=== PATIENT | female | born 1970 | race Caucasian/White ===

== ENCOUNTER 2017-11-23 13:38 | Emergency (ER) | payer SELFPAY ==
[2017-11-23 14:00] VITALS: RESP 18
[2017-11-23] MEDS ORDERED: MORPHINE SULFATE 4 MG/ML SYRINGE IVP STA (14:32)
[2017-11-23] MEDS ORDERED: LIDOCAINE VISCOUS 2% 15 ML CUP MUCOUS MEM ONE (14:34)
[2017-11-23 15:03] LABS: Partial Thromboplastin Time 23.1 sec (22.0-30.0)
[2017-11-23 15:04] LABS: ALT 24 U/L (9-52); AST 26 U/L (14-36); Albumin 4.7 g/dL (3.5-5.0); Alkaline Phosphatase 47 U/L (38-126); Anion Gap 9 mmol/L; Blood Urea Nitrogen 16 mg/dL (7-17); Calcium 9.9 mg/dL (8.4-10.2); Carbon Dioxide 26 mmol/L (22-30); Chloride 106 mmol/L (98-107); Glucose 98 mg/dL (74-99); Potassium 4.2 mmol/L (3.5-5.1); Sodium 141 mmol/L (137-145); Total Bilirubin 0.4 mg/dL (0.2-1.3); Total Protein 7.6 g/dL (6.3-8.2)
[2017-11-23 15:16] LABS: Basophils % (A) 1 %; Eosinophils # (A) 0.3 k/uL (0-0.7); Eosinophils % (A) 4 %; HCT 44.2 % (34.0-46.0); HGB 13.9 gm/dL (11.4-16.0); Lymphocytes # (A) 2.1 k/uL (1.0-4.8); Lymphocytes % (A) 34 %; MCH 30.9 pg (25.0-35.0); MCHC 31.6 g/dL (31.0-37.0); MCV 97.8 fL (80.0-100.0); Mean Platelet Volume 7.5; Monocytes # (A) 0.3 k/uL (0-1.0); Monocytes % (A) 6 %; Neutrophils # (A) 3.2 k/uL (1.3-7.7); Neutrophils % (A) 53 %; Platelet Count 225 k/uL (150-450); RBC 4.52 m/uL (3.80-5.40); RDW 13.1 % (11.5-15.5)
--- NOTE | 2017-11-23 15:38 | ED ---
GI Bleed HPI - General Chief complaint: GI Bleed Stated complaint: Rectal pain Time Seen by Provider: 11/23/17 14:08 Source: patient, RN notes reviewed, old records reviewed Mode of arrival: ambulatory Limitations: no limitations - History of Present Illness Initial comments: Patient is a 47-year-old female presents for instructed to plan of rectal pain. Patient reports that she was straining to have a bowel movement suddenly felt a large bulge from her rectum. Patient reports she's noticed some blood. Patient states she's had this happen before. She denies any history of anal intercourse, over her history of severe constipation. She denies any abdominal pain. Patient states that she's had no children. Patient denies any recent fever, chills, shortness of breath, chest pain, back pain, abdominal pain, nausea vomiting, numbness or tingling, dysuria or hematuria, constipation or diarrhea, headaches or visual changes, or any other current symptoms - Related Data Previous Rx's Medication Instructions Recorded Bisacodyl [Dulcolax] 10 mg PO ONCE #20 tablet. 11/23/17 Allergies Allergy/AdvReac Type Severity Reaction Status Date / Time No Known Allergies Allergy Verified 11/23/17 13:57 Review of Systems ROS Statement: Those systems with pertinent positive or pertinent negative responses have been documented in the HPI. ROS Other: All systems not noted in ROS Statement are negative. Past Medical History Past Medical History: No Reported History History of Any Multi-Drug Resistant Organisms: None Reported Past Surgical History: No Surgical Hx Reported Past Psychological History: No Psychological Hx Reported Smoking Status: Unknown if ever smoked Past Alcohol Use History: None Reported Past Drug Use History: Marijuana General Exam - General Exam Comments Initial Comments: 47-year-old female. Alert and oriented. No significant distress. Limitations: no limitations General appearance: alert, in no apparent distress Head exam: Present: atraumatic, normocephalic, normal inspection Eye exam: Present: normal appearance, PERRL, EOMI. Absent: scleral icterus, conjunctival injection, periorbital swelling ENT exam: Present: normal exam, mucous membranes moist Neck exam: Present: normal inspection. Absent: tenderness, meningismus, lymphadenopathy Respiratory exam: Present: normal lung sounds bilaterally. Absent: respiratory distress, wheezes, rales, rhonchi, stridor Cardiovascular Exam: Present: regular rate, normal rhythm, normal heart sounds. Absent: systolic murmur, diastolic murmur, rubs, gallop, clicks GI/Abdominal exam: Present: soft, normal bowel sounds. Absent: distended, tenderness, guarding, rebound, rigid Rectal exam: Present: mass (Patient has a cobblestone-like appearance mass over the rectum. Concern for rectal prolapse.). Absent: normal inspection, normal rectal tone Extremities exam: Present: normal inspection, full ROM, normal capillary refill. Absent: tenderness, pedal edema, joint swelling, calf tenderness Back exam: Present: normal inspection Neurological exam: Present: alert, oriented X3, CN II-XII intact Psychiatric exam: Present: normal affect, normal mood Course Vital Signs 11/23/17 11/23/17 13:57 15:47 Temperature 98.0 F 98 F Pulse Rate 75 68 Respiratory 18 18 Rate Blood Pressure 116/57 118/70 O2 Sat by Pulse 99 100 Oximetry Medical Decision Making - Medical Decision Making 47-year-old female presents emergency Department a concern for rectal mass. On exam she has a cobblestone-like appearance rectal prolapse. rectal prolapse was approximately 1-1/2 inches in length. Lab work was obtained Patient was given pain medication to help relax her. We did place topical viscous lidocaine. After I applied some firm slow steady pressure was able to return the rectal prolapse to normal position. She has normal rectal tone afterwards. She did have some bleeding at time of exam. Discussed that she could expect some minor bleeding for the next few days. I will put the Patient on stool softeners. I discussed that she should follow-up with a general surgeon for a colonoscopy and further evaluation. Patient understands treatment plan will comply. Return parameters were discussed. - Lab Data Result diagrams: 11/23/17 14:40 11/23/17 14:40 Lab Results 11/23/17 11/23/17 11/23/17 Range/Units 14:40 14:40 14:40 WBC 6.0 (3.8-10.6) k/uL RBC 4.52 (3.80-5.40) m/uL Hgb 13.9 (11.4-16.0) gm/dL Hct 44.2 (34.0-46.0) % MCV 97.8 (80.0-100.0) fL MCH 30.9 (25.0-35.0) pg MCHC 31.6 (31.0-37.0) g/dL RDW 13.1 (11.5-15.5) % Plt Count 225 (150-450) k/uL Neutrophils % 53 % Lymphocytes % 34 % Monocytes % 6 % Eosinophils % 4 % Basophils % 1 % Neutrophils # 3.2 (1.3-7.7) k/uL Lymphocytes # 2.1 (1.0-4.8) k/uL Monocytes # 0.3 (0-1.0) k/uL Eosinophils # 0.3 (0-0.7) k/uL Basophils # 0.0 (0-0.2) k/uL PT 10.0 (9.0-12.0) sec INR 1.0 (<1.2) APTT 23.1 (22.0-30.0) sec Sodium 141 (137-145) mmol/L Potassium 4.2 (3.5-5.1) mmol/L Chloride 106 (98-107) mmol/L Carbon Dioxide 26 (22-30) mmol/L Anion Gap 9 mmol/L BUN 16 (7-17) mg/dL Creatinine 0.86 (0.52-1.04) mg/dL Est GFR (CKD-EPI)AfAm >90 (>60 ml/min/1.73 sqM) Est GFR (CKD-EPI)NonAf 83 (>60 ml/min/1.73 sqM) Glucose 98 (74-99) mg/dL Calcium 9.9 (8.4-10.2) mg/dL Total Bilirubin 0.4 (0.2-1.3) mg/dL AST 26 (14-36) U/L ALT 24 (9-52) U/L Alkaline Phosphatase 47 (38-126) U/L Total Protein 7.6 (6.3-8.2) g/dL Albumin 4.7 (3.5-5.0) g/dL Disposition Clinical Impression: Rectal prolapse Disposition: HOME SELF-CARE Condition: Good Instructions: Rectal Prolapse (ED) Additional Instructions: Patient has a follow-up with GI surgeon. Return to the emergency department if any alarming signs or symptoms occur. Make sure drinking plain fluids. Patient should likely schedule colonoscopy. Take stool softeners daily. Prescriptions: Bisacodyl [Dulcolax] 10 mg PO ONCE #20 tablet.dr Is patient prescribed a controlled substance at d/c from ED?: No Referrals: None,Stated [Primary Care Provider] - 1-2 days Shaniqua Beach DO [Doctor of Osteopathic Medicine] - 1-2 days Time of Disposition: 15:38
[2017-11-23 15:48] VITALS: BP 118/70; PULSE 68; TEMP 98
== END 2017-11-23 15:47 | disposition home or self-care (01) ==
LOC: EC 13:38
DX: K62.3 Rectal prolapse (principal)
CPT/HCPCS: 36415; 80053; 85025; 85610; 85730; 99285; 96374; J2270

== ENCOUNTER 2017-11-25 03:07 | Observation (INO) | payer OTHER ==
[2017-11-25] MEDS ORDERED: NALOXONE 0.4 MG/ML 1 ML VIAL IV PRN (03:20)
[2017-11-25] MEDS: SODIUM CHLORIDE 0.9% 1,000 ML IV SCH ×2 (03:21→12:58)
[2017-11-25 03:28] LABS: Basophils % (A) 0 %; Eosinophils # (A) 0.1 k/uL (0-0.7); Eosinophils % (A) 1 %; HCT 38.9 % (34.0-46.0); Lymphocytes % (A) 9 %; MCH 32.6 pg (25.0-35.0); MCHC 33.5 g/dL (31.0-37.0); MCV 97.3 fL (80.0-100.0); Mean Platelet Volume 7.2; Monocytes # (A) 0.4 k/uL (0-1.0); Monocytes % (A) 3 %; Neutrophils # (A) 10.1 k/uL (1.3-7.7); Neutrophils % (A) 86 %; Platelet Count 185 k/uL (150-450); RBC 3.99 m/uL (3.80-5.40); RDW 12.9 % (11.5-15.5); WBC 11.8 k/uL (3.8-10.6)
--- NOTE | 2017-11-25 03:29 | ED ---
General Adult HPI - General Chief complaint: Abdominal Pain Stated complaint: kidney stone Time Seen by Provider: 11/25/17 03:11 Source: patient, family, EMS Mode of arrival: EMS Limitations: no limitations - History of Present Illness Initial comments: Adam is a previously healthy 47-year-old female who presents to our ED via EMS as a transfer from outside facility. The patient presented to the outside facility for acute onset of right sided abdominal pain. Patient was in severe stabbing 10 out of 10 pain. Labs and imaging were ordered at outside facility and revealed a very large right-sided ureteral stone measuring 23 x 12 x 9 mm. Patient had severe hydronephrosis with a little functional renal parenchyma noted. Patient had evidence of a urinary tract infection and was given IV Rocephin. Pain which managed with IV Dilaudid and the patient was transferred here for evaluation by urology. Despite receiving 1.5 mg of Dilaudid in the past 3 hours the patient reports persistent flank and right-sided abdominal pain. She denies any recent fevers, chills, or vomiting. She does report nausea associated with the pain, as well as dry heaves but no vomiting. Note the patient was evaluated in our hospital on November 23 for rectal prolapse, her rectum was manually reduced. She's not having any further rectal pain or prolapse. - Related Data Previous Rx's Medication Instructions Recorded Bisacodyl [Dulcolax] 10 mg PO ONCE #20 tablet. 11/23/17 Allergies Allergy/AdvReac Type Severity Reaction Status Date / Time No Known Allergies Allergy Verified 11/25/17 03:15 Review of Systems ROS Statement: Those systems with pertinent positive or pertinent negative responses have been documented in the HPI. ROS Other: All systems not noted in ROS Statement are negative. Past Medical History Past Medical History: No Reported History Additional Past Medical History / Comment(s): kidney stone, rectal prolapse History of Any Multi-Drug Resistant Organisms: None Reported Past Surgical History: No Surgical Hx Reported Past Psychological History: No Psychological Hx Reported Smoking Status: Never smoker Past Alcohol Use History: None Reported Past Drug Use History: Marijuana General Exam - General Exam Comments Initial Comments: GENERAL: Patient is well-developed and well-nourished. Patient is nontoxic and well- hydrated and is in moderate distress. Patient appears uncomfortable HENT: Normocephalic, Atraumatic. Neck is soft and supple. No significant lymphadenopathy is noted. Oropharynx is clear. Moist mucous membranes. Neck has full range of motion without eliciting any pain. EYES: The sclera were anicteric and conjunctiva were pink and moist. Extraocular movements were intact and pupils were equal round and reactive to light. Eyelids were unremarkable. PULMONARY: Unlabored respirations. Good breath sounds bilaterally. No audible rales rhonchi or wheezing was noted. CARDIOVASCULAR: There is a regular rate and rhythm without any murmurs gallops or rubs. ABDOMEN: Soft and nontender with normal bowel sounds. Right-sided abdominal and flank pain SKIN: Skin is clear with no lesions or rashes and otherwise unremarkable. NEUROLOGIC: Patient is alert and oriented x3. Cranial nerves II through XII are grossly intact. Motor and sensory are also intact. Normal speech, volume and content. Symmetrical smile. Antalgic gait MUSCULOSKELETAL: Normal extremities with adequate strength and full range of motion. No lower extremity swelling or edema. No calf tenderness. LYMPHATICS: No significant lymphadenopathy is noted PSYCHIATRIC: Normal psychiatric evaluation. Limitations: no limitations Limitations: no limitations Course Vital Signs 11/25/17 03:08 Temperature 98.5 F Pulse Rate 69 Respiratory 16 Rate Blood Pressure 138/79 O2 Sat by Pulse 100 Oximetry Medical Decision Making - Medical Decision Making Patient care was discussed with Dr. Sibley at [facility] who is transferring the patient to us for evaluation by urology Patient and was seen and evaluated immediately upon arrival to the emergency department,. He is a healthy 47-year-old female in moderate pain despite having repeat doses of Dilaudid Patient care was discussed with urology education program specialist Dr. Iglesias. He states that stones of this size typically arch acute require outpatient management, however patient does need to be seen this week urgent management. He states that the patient's pain can be controlled in the emergency department she can be discharged home. Otherwise place her in observation. Sitting the patient has had 1.5 mg of Dilaudid and has persistent pain, an antalgic gait, as well as evidence of urinary tract infection in the setting of a kidney stone I do feel that she requires observation. In addition the patient does live in [place] and would have to commute to this area to be reevaluated by urology. I will place the patient in observation for pain management, IV fluids and evaluation by urology. Disposition Clinical Impression: Kidney stone on right side, Hydronephrosis due to obstruction of ureter, Urinary tract infection Disposition: ADMITTED IP TO THIS HOSP Condition: Stable Referrals: Ann Mayers DO [Primary Care Provider] - 1-2 days
[2017-11-25 03:38] LABS: Appearance,Urine Clear (Clear); Bilirubin,Urine Negative (Negative); Blood,Urine Small (Negative); Color,Urine Light Yellow; Glucose,Urine (UA) Negative (Negative); Ketones,Urine Negative (Negative); Leukocyte Esterase,Urine Moderate (Negative); Nitrite,Urine Negative (Negative); PH, Urine 5.5 (5.0-8.0); Protein,Urine Trace (Negative); RBC,Urine 1 /hpf (0-5); Squamous Epithelial Cell,Urine 2 /hpf (0-4); Urobilinogen,Urine <2.0 mg/dL (<2.0); WBC,Urine 15 /hpf (0-5)
[2017-11-25 03:39] LABS: Prothrombin Time 9.9 sec (9.0-12.0)
[2017-11-25 03:40] LABS: ALT 34 U/L (9-52); AST 28 U/L (14-36); Albumin 3.9 g/dL (3.5-5.0); Alkaline Phosphatase 52 U/L (38-126); Anion Gap 10 mmol/L; Blood Urea Nitrogen 18 mg/dL (7-17); Calcium 8.9 mg/dL (8.4-10.2); Carbon Dioxide 20 mmol/L (22-30); Chloride 110 mmol/L (98-107); Glucose 146 mg/dL (74-99); Potassium 4.4 mmol/L (3.5-5.1); Sodium 140 mmol/L (137-145); Total Bilirubin 0.3 mg/dL (0.2-1.3); Total Protein 6.7 g/dL (6.3-8.2)
[2017-11-25] MEDS: HYDROmorphone 1 MG/ML 1 ML SYRINGE IVP PRN ×2 (03:48→06:09)
[2017-11-25] MEDS ORDERED: ONDANSETRON 4 MG/2 ML VIAL IVP STA (04:19)
[2017-11-25] MEDS ORDERED: KETOROLAC 30 MG/ML 1 ML VIAL IVP STA (04:19)
[2017-11-25 04:22] LABS: Specific Gravity,Urine >1.050 (1.001-1.035)
[2017-11-25] MEDS ORDERED: ONDANSETRON 4 MG/2 ML VIAL IVP PRN (04:31)
[2017-11-25 04:52] VITALS: BMI 21.6
[2017-11-25 05:05] VITALS: RESP 18
[2017-11-25 08:07] VITALS: BP 104/65; PULSE 88; TEMP 98.7
--- NOTE | 2017-11-25 14:00 | P.GSHP ---
History of Present Illness H&P Date: 11/25/17 Chief Complaint: Right flank pain The patient is a 47-year-old white female with an unremarkable urologic history. Specifically, she denies any prior history of UTIs or urolithiasis. Yesterday evening, she experienced right flank pain radiating to the right lower quadrant. She was evaluated at [facility]. A computed tomography scan showed marked right hydroureteronephrosis, with thinning of the right renal parenchyma, due to a 22 mm right distal ureteral calculus. She was transferred to [facility] and admitted. - Constitutional Constitutional: Reports chills, Denies fever - Gastrointestinal Gastrointestinal: Reports nausea, Reports vomiting - Genitourinary (Female) Genitourinary: Reports flank pain, Denies dysuria, Denies hematuria Past Medical History Past Medical History: No Reported History Additional Past Medical History / Comment(s): kidney stone, rectal prolapse History of Any Multi-Drug Resistant Organisms: None Reported Past Surgical History: No Surgical Hx Reported Smoking Status: Never smoker - Past Family History Mother Family Medical History: Asthma Additional Family Medical History / Comment(s): kidney stones Father Family Medical History: No Reported History Medications and Allergies Home Medications Medication Instructions Recorded Confirmed Type Hydrocodone/Acetaminophen [[place] 1 - 2 each PO Q4HR PRN #20 tab 11/25/17 Rx 5-325] Allergies Allergy/AdvReac Type Severity Reaction Status Date / Time No Known Allergies Allergy Verified 11/25/17 08:22 Surgical - Exam Vital Signs Temp Pulse Resp BP Pulse Ox 98.5 F 69 16 138/79 100 11/25/17 03:08 11/25/17 03:08 11/25/17 03:08 11/25/17 03:08 11/25/17 03:08 - General well developed, well nourished, no distress - Neck no masses, trachea midline - Respiratory normal respiratory effort - Abdomen Abdomen: soft, non tender, no guarding, no rigid, no rebound - Psychiatric oriented to time, oriented to person, oriented to place, speech is normal, memory intact Results - Labs 11/25/17 03:18 11/25/17 03:18 Abnormal Lab Results - Last 24 Hours (Table) 11/25/17 11/25/17 11/25/17 Range/Units 03:16 03:18 03:18 WBC 11.8 H (3.8-10.6) k/uL Neutrophils # 10.1 H (1.3-7.7) k/uL Chloride 110 H (98-107) mmol/L Carbon Dioxide 20 L (22-30) mmol/L BUN 18 H (7-17) mg/dL Glucose 146 H (74-99) mg/dL Ur Specific [place] >1.050 H (1.001-1.035) Urine Protein Trace H (Negative) Urine Blood Small H (Negative) Ur Leukocyte Esterase Moderate H (Negative) Urine WBC 15 H (0-5) /hpf Diabetes panel 11/25/17 Range/Units 03:18 Sodium 140 (137-145) mmol/L Potassium 4.4 (3.5-5.1) mmol/L Chloride 110 H (98-107) mmol/L Carbon Dioxide 20 L (22-30) mmol/L BUN 18 H (7-17) mg/dL Creatinine 0.81 (0.52-1.04) mg/dL Glucose 146 H (74-99) mg/dL Calcium 8.9 (8.4-10.2) mg/dL AST 28 (14-36) U/L ALT 34 (9-52) U/L Alkaline Phosphatase 52 (38-126) U/L Total Protein 6.7 (6.3-8.2) g/dL Albumin 3.9 (3.5-5.0) g/dL Calcium panel 11/25/17 Range/Units 03:18 Calcium 8.9 (8.4-10.2) mg/dL Albumin 3.9 (3.5-5.0) g/dL Pituitary panel 11/25/17 Range/Units 03:18 Sodium 140 (137-145) mmol/L Potassium 4.4 (3.5-5.1) mmol/L Chloride 110 H (98-107) mmol/L Carbon Dioxide 20 L (22-30) mmol/L BUN 18 H (7-17) mg/dL Creatinine 0.81 (0.52-1.04) mg/dL Glucose 146 H (74-99) mg/dL Calcium 8.9 (8.4-10.2) mg/dL Adrenal panel 11/25/17 Range/Units 03:18 Sodium 140 (137-145) mmol/L Potassium 4.4 (3.5-5.1) mmol/L Chloride 110 H (98-107) mmol/L Carbon Dioxide 20 L (22-30) mmol/L BUN 18 H (7-17) mg/dL Creatinine 0.81 (0.52-1.04) mg/dL Glucose 146 H (74-99) mg/dL Calcium 8.9 (8.4-10.2) mg/dL Total Bilirubin 0.3 (0.2-1.3) mg/dL AST 28 (14-36) U/L ALT 34 (9-52) U/L Alkaline Phosphatase 52 (38-126) U/L Total Protein 6.7 (6.3-8.2) g/dL Albumin 3.9 (3.5-5.0) g/dL - Imaging CT scan - abdomen: report reviewed, image reviewed Assessment and Plan (1) Hydronephrosis with urinary obstruction due to ureteral calculus Current Visit: Yes Status: Acute Code(s): N13.2 - HYDRONEPHROSIS WITH RENAL AND URETERAL CALCULOUS OBSTRUCTION SNOMED Code(s): 344459234 Plan: I had a lengthy discussion with the patient regarding the computed tomography scan findings. The degree of hydronephrosis, with thinned parenchyma, indicates that the ureteral obstruction has been long-standing. I explained to her that she has likely lost some permanent right renal function, but that removal of the calculus may preserve her remaining right renal function. We discussed alternative treatment options, which include ESWL, ureteroscopy with laser lithotripsy, and open ureterolithotomy. The pros and cons of each were reviewed. I have suggested that she undergo ureteroscopy with laser lithotripsy , but I explained to her that this would likely require multiple procedures. I explained that the open ureterolithotomy offers the advantage of it being a single procedure, but postoperatively she will be advised to avoid lifting and strenuous activity for approximately 4-6 weeks. I also discussed the fact that regardless which procedure she elects to proceed with, there is a possibility that she will develop a ureteral stricture due to the fact that the calculus has been impacted there for an extended time period. She has elected to undergo right ureteroscopy with laser lithotripsy, with the understanding that the procedure will likely be staged. However, if there is enough edema surrounding the calculus that this cannot be successfully performed, she prefers to undergo an open ureterolithotomy. She will be discharged home, as she is currently comfortable, and she is given a prescription for [place]. She will be scheduled for surgery, later this week if possible. Time with Patient: Greater than 30
== END 2017-11-25 14:30 | disposition home or self-care (01) ==
LOC: EC 03:07 → 3OBS 03:29
PROVIDERS: ADMIT Urology; ATTEND Urology
DX: N13.2 Hydronephrosis with renal and ureteral calculous obstruction (principal); Z87.19 Personal history of other diseases of the digestive system; Z84.1 Family history of disorders of kidney and ureter; Z82.5 Family history of asthma and other chronic lower respiratory diseases
CPT/HCPCS: 99285 ×2; 96374 ×2; 96375 ×3; 96361 ×3; 96376; 36415; 86900; 86901; 80053; 83605; 85025; 85610; 85730; 86850; 81001; 87040; 87086; G0378; J2405; J1885; J1170

== ENCOUNTER 2017-11-28 16:48 | Inpatient (IN) | payer OTHER ==
--- NOTE | 2017-11-28 15:56 | P.GSHP ---
History of Present Illness H&P Date: 11/28/17 Chief Complaint: Flank Pain The patient is a 47-year-old white female with an unremarkable urologic history. Specifically, she denies any prior history of UTIs or urolithiasis. On the evening of 11/24/17, she experienced right flank pain radiating to the right lower quadrant. She was evaluated at [facility]. A CT scan showed marked right hydroureteronephrosis, with thinning of the right renal parenchyma, due to a 22 mm right distal ureteral calculus. She was transferred to [facility] and admitted. She was offered various management options. She was comfortable and thus declined placement of a ureteral stent or nephrostomy tube. Arrangements were to be made for her to undergo elective removal of the calculus. However, she presents today with intractable symptoms. - Constitutional Constitutional: Denies fever - Gastrointestinal Gastrointestinal: Reports nausea, Reports vomiting - Genitourinary (Female) Genitourinary: Reports flank pain Past Medical History Past Medical History: No Reported History Additional Past Medical History / Comment(s): kidney stone, rectal prolapse History of Any Multi-Drug Resistant Organisms: None Reported Past Surgical History: No Surgical Hx Reported Additional Past Surgical History / Comment(s): teeth removed Past Anesthesia/Blood Transfusion Reactions: No Reported Reaction Smoking Status: Never smoker - Past Family History Mother Family Medical History: Asthma Additional Family Medical History / Comment(s): kidney stones Father Family Medical History: No Reported History Medications and Allergies Home Medications Medication Instructions Recorded Confirmed Type Hydrocodone/Acetaminophen [[place] 1 - 2 each PO Q4HR PRN #20 tab 11/25/17 Rx 5-325] Allergies Allergy/AdvReac Type Severity Reaction Status Date / Time No Known Allergies Allergy Verified 11/28/17 14:18 Surgical - Exam - General well developed, well nourished, moderate distress - Respiratory normal respiratory effort - Abdomen Abdomen: soft, non tender, no guarding, no rigid, no rebound - Psychiatric oriented to time, oriented to person, oriented to place, speech is normal, memory intact Results - Imaging CT scan - abdomen: report reviewed, image reviewed Assessment and Plan (1) Hydronephrosis with urinary obstruction due to ureteral calculus Status: Acute Code(s): N13.2 - HYDRONEPHROSIS WITH RENAL AND URETERAL CALCULOUS OBSTRUCTION SNOMED Code(s): 246006127 Plan: Alternative management options have been discussed in detail with the patient and her . Her stone is very large, and as such I believe she is best suited for an open procedure. However, this would force her to miss 4-6 weeks of work. In view of this, she desires an endoscopic approach if feasible. She is aware that this would likely require multiple procedures. As a result of shared decision-making, it was ultimately decided to proceed with cystoscopy, right ureteroscopy with Holmium laser lithotripsy, and ureteral stent placement. If it becomes evident that this is not feasible, she will undergo an open right ureterolithotomy. I have explained all of this to the patient and her to the best of my ability. I have explained potential risks, which include anesthesia, bleeding, infection, ureteral injury, urinary leak, and postoperative ureteral stricture.
[~2017-11-28 16:48] MED LIST changes: +DANTROLENE 20 MG VIAL IV ONE; +DEXAMETHASONE SOD PHOS (MDV) 100 MG/10 ML VIAL IVP ONE; +FAMOTIDINE 20 MG/2 ML VIAL IVP ONE; -FAMOTIDINE 20 MG/2 ML VIAL ONE; +HYDROmorphone (PF) 1 MG/ML ONE; +LACTATED RINGERS 1,000 ML IV ONE; +LIDOCAINE 1% 20 ML VIAL (10MG/ML) FOR IV START INTRADERMA ONE; +LIDOCAINE 1% INJ 10MG/ML (20 ML MDV) ONE; +MIDAZOLAM 2 MG/2 ML VIAL ONE; +ONDANSETRON 4 MG/2 ML VIAL IVP ONE; +PHENYLEPHRINE-0.9% NACL SYG 1 MG/10 ML SYRINGE ONE; +PROPOFOL 10 MG/ML 20 ML VIAL IV ONE; +SUCCINYLCHOLINE CHLORIDE 100 MG/5 ML SYR IV ONE; +ceFAZolin 1,000 MG in DEXTROSE/WATER 1 50ML.BAG IVPB SCH; +fentaNYL (PF) 50 MCG/ML 2 ML AMP ONE
[2017-11-28] MEDS ORDERED: IOPAMIDOL-370 50ML BTL IRRIGATION ONE ×2 (17:23)
[2017-11-28] MEDS ORDERED: LACTATED RINGERS 1,000 ML IV ONE ×3 (18:21→19:35)
--- NOTE | 2017-11-28 19:44 | P.OP ---
Date of Procedure: 11/28/17 Preoperative Diagnosis: Right Ureteral Calculus Postoperative Diagnosis: Same Procedure(s) Performed: Cystoscopy, Right Ureteroscopy with Holmium Laser Lithotripsy and Stone Basketing, Right Ureteral Stent Insertion Anesthesia: MOISES Surgeon: Anson Iglesias Estimated Blood Loss (ml): 0 IV fluids (ml): 1,100 Pathology: none sent Condition: stable Disposition: PACU Indications for Procedure: The patient is a 47-year-old white female with an unremarkable urologic history. Specifically, she denies any prior history of UTIs or urolithiasis. On the evening of 11/24/17, she experienced right flank pain radiating to the right lower quadrant. She was evaluated at [facility]. A CT scan showed marked right hydroureteronephrosis, with thinning of the right renal parenchyma, due to a 22 mm right distal ureteral calculus. Operative Findings: Large right distal ureteral calculus, fragmented and removed in its entirety. Description of Procedure: The patient was taken to the operating room and placed in the dorsolithotomy position, with legs supported in Luisito stirrups. The external genitalia was prepped and draped sterilely. The 30 lens was used to introduce the 19-Maori Stortz cystoscopic sheath through the urethra and into the bladder under direct vision. The bladder was examined in its entirety. Both ureteral orifices were normal anatomic location and configuration. No tumors or foreign bodies were seen. A 0.038 inch Glidewire was passed through the cystoscope. The right ureteral orifice was cannulated, and the Glidewire was advanced beyond the calculus and up to the right renal pelvis. A 15-Maori, 10 cm ureteral balloon dilating catheter was passed over the Glidewire, and the ureter distal to the calculus was dilated. With the Glidewire left in place, the A[facility] semirigid ureteroscope was advanced into the bladder, and the right ureteral orifice was cannulated. The ureteroscope was then advanced up to the calculus. The 365 micron Holmium laser probe was passed through the ureteroscope, and lithotripsy was performed. A dusting technique was utilized until the calculus began to fragment, at which point popcorning of the fragments was performed within the dilated ureter. A nitinol basket was then used to remove all of the calculus fragments from the ureter. Final inspection of the ureter showed no evidence of ureteral trauma, and only a very small amount of debris remained. The ureteroscope was removed, and the Glidewire was backloaded into the cystoscope, which was advanced into the bladder. A 26 cm, 4.8-Maori double-J ureteral stent was placed over the wire. Proper stent positioning was verified fluoroscopically and endoscopically. The bladder was emptied and the cystoscope removed. The patient tolerated the procedure well and was taken to the recovery room in stable condition.
[2017-11-28 19:53] LABS: ABG Base Excess -3.3 mmol/L; ABG HCO3 22 mmol/L (21-25); ABG PCO2 35 mmHg (35-45); ABG TCO2 23 mmol/L (19-24)
[2017-11-28 20:01] LABS: Basophils % (A) 1 %; Eosinophils # (A) 0.1 k/uL (0-0.7); Eosinophils % (A) 2 %; HGB 11.4 gm/dL (11.4-16.0); Hypochromasia Slight; Lymphocytes # (A) 0.2 k/uL (1.0-4.8); Lymphocytes % (A) 8 %; MCH 31.3 pg (25.0-35.0); MCHC 31.8 g/dL (31.0-37.0); MCV 98.6 fL (80.0-100.0); Mean Platelet Volume 7.3; Monocytes # (A) 0.1 k/uL (0-1.0); Monocytes % (A) 2 %; Neutrophils # (A) 1.9 k/uL (1.3-7.7); Neutrophils % (A) 86 %; Platelet Count 167 k/uL (150-450); RBC 3.65 m/uL (3.80-5.40); WBC 2.2 k/uL (3.8-10.6)
[2017-11-28 20:06] LABS: ABG PO2 48 mmHg (83-108)
[2017-11-28 20:12] LABS: ALT 71 U/L (9-52); AST 68 U/L (14-36); Alkaline Phosphatase 154 U/L (38-126); Amylase <30 U/L (30-110); Anion Gap 10 mmol/L; Blood Urea Nitrogen 7 mg/dL (7-17); Calcium 8.3 mg/dL (8.4-10.2); Carbon Dioxide 22 mmol/L (22-30); Chloride 103 mmol/L (98-107); Glucose 147 mg/dL (74-99); Magnesium 1.5 mg/dL (1.6-2.3); Phosphorus 3.9 mg/dL (2.5-4.5); Potassium 4.4 mmol/L (3.5-5.1); Sodium 135 mmol/L (137-145); Total Bilirubin 1.1 mg/dL (0.2-1.3); Total Protein 5.7 g/dL (6.3-8.2)
[2017-11-28] MEDS: GENTAMICIN 120 MG in SODIUM CHLORIDE 0.9% 100 ML IVPB STA ×2 (20:15→21:15)
[2017-11-28] MEDS ORDERED: PROPOFOL 10 MG/ML 50 ML VIAL IV ONE (20:35)
[2017-11-28] MEDS ORDERED: PROPRANOLOL 1 MG/ML 1 ML VIAL IV ONE (20:35)
[2017-11-28] MEDS ORDERED: MIDAZOLAM 2 MG/2 ML VIAL IVP ONE (20:41)
[2017-11-28] MEDS ORDERED: ROCURONIUM BROMIDE 10 MG/ML 10 ML VIAL IV ONE ×2 (20:43→21:40)
[2017-11-28] MEDS ORDERED: MAGNESIUM SULFATE-D5W PMX 1 GM in DEXTROSE/WATER 1 100ML.BAG IVPB ONE (20:48)
[2017-11-28] MEDS ORDERED: LORazepam 2 MG/ML INJ IV ONE ×2 (20:50→21:37)
[2017-11-28 21:11] LABS: ABG Base Excess -2.4 mmol/L; ABG HCO3 23 mmol/L (21-25); ABG Oxygen Saturation 94.9 % (94-97); ABG PCO2 37 mmHg (35-45); ABG PH 7.39 (7.35-7.45); ABG PO2 69 mmHg (83-108); ABG TCO2 24 mmol/L (19-24)
--- NOTE | 2017-11-28 21:42 | XR ---
EXAMINATION TYPE: XR chest 1V DATE OF EXAM: 11/28/2017 COMPARISON: NONE HISTORY: Check tube placement TECHNIQUE: Single frontal view of the chest is obtained. FINDINGS: There is endotracheal tube 5 cm from the annika. There is pulmonary edema. There is right jugular catheter with tip in the right atrium. There are chest leads. There is nasogastric tube in go od position in the stomach. IMPRESSION: Pulmonary alveolar edema. Tubing appears in good position. No pneumothorax.
[2017-11-28 21:56] LABS: Glucose,Whole Blood 172 mg/dL (75-99)
[2017-11-28 22:39] LABS: ABG Base Excess -2.1 mmol/L; ABG HCO3 23 mmol/L (21-25); ABG Oxygen Saturation 98.5 % (94-97); ABG PCO2 36 mmHg (35-45); ABG PH 7.41 (7.35-7.45); ABG PO2 96 mmHg (83-108); ABG TCO2 24 mmol/L (19-24)
[2017-11-28] MEDS: PROPOFOL 1,000 MG in EMPTY BAG 1 BAG IV SCH (22:39)
[2017-11-28] MEDS: LACTATED RINGERS 1,000 ML IV SCH (22:51)
[2017-11-28 23:09] LABS: Anion Gap 9 mmol/L; Blood Urea Nitrogen 7 mg/dL (7-17); Calcium 7.8 mg/dL (8.4-10.2); Carbon Dioxide 23 mmol/L (22-30); Chloride 104 mmol/L (98-107); Glucose 157 mg/dL (74-99); Potassium 3.9 mmol/L (3.5-5.1); Sodium 136 mmol/L (137-145)
[2017-11-28 23:23] LABS: T4, Free (Free Thyroxine) 1.49 ng/dL (0.78-2.19)
[2017-11-28] MEDS ORDERED: FUROSEMIDE 10 MG/ML 2 ML VIAL IV ONE (23:26)
[2017-11-28] MEDS ORDERED: NALOXONE 0.4 MG/ML 1 ML VIAL IV PRN (23:39)
[2017-11-29] MEDS: HEPARIN SODIUM,PORCINE 5,000 UNIT/ML 1 ML VIAL SQ SCH ×3 (00:03→16:28)
[2017-11-29 00:09] LABS: HCT 32.8 % (34.0-46.0); HGB 10.6 gm/dL (11.4-16.0); MCH 31.2 pg (25.0-35.0); MCHC 32.5 g/dL (31.0-37.0); MCV 96.1 fL (80.0-100.0); Platelet Count 140 k/uL (150-450); RBC 3.42 m/uL (3.80-5.40); RDW 13.1 % (11.5-15.5); WBC 9.6 k/uL (3.8-10.6)
[2017-11-29 00:37] LABS: Band Neutrophils % 24 %; Lymphocytes # (M) 0.29 k/uL (1.0-4.8); Monocytes # (M) 0.29 k/uL (0-1.0); Neutrophils % (M) 71 %; Nucleated Red Blood Cells 0 /100 WBC (0-0); Total Cells Counted 200
[2017-11-29 00:40] LABS: Anisocytosis (M) Present
[2017-11-29 00:42] LABS: Polychromasia Present
[2017-11-29 00:44] LABS: Toxic Vacuolation Present
[2017-11-29] MEDS: DANTROLENE 20 MG VIAL IV SCH ×4 (02:28→20:55)
[2017-11-29 02:31] LABS: Basophils % (A) 0 %; Eosinophils % (A) 0 %; HCT 34.4 % (34.0-46.0); HGB 10.9 gm/dL (11.4-16.0); Lymphocytes # (A) 0.4 k/uL (1.0-4.8); Lymphocytes % (A) 3 %; MCHC 31.7 g/dL (31.0-37.0); MCV 97.8 fL (80.0-100.0); Mean Platelet Volume 7.4; Monocytes # (A) 0.5 k/uL (0-1.0); Monocytes % (A) 4 %; Neutrophils # (A) 11.7 k/uL (1.3-7.7); Neutrophils % (A) 92 %; Platelet Count 145 k/uL (150-450); RBC 3.51 m/uL (3.80-5.40); WBC 12.7 k/uL (3.8-10.6)
[2017-11-29 02:34] LABS: Amylase <30 U/L (30-110); GGT 155 U/L (12-43); Lipase <10 U/L (23-300); Magnesium 2.1 mg/dL (1.6-2.3); Phosphorus 3.9 mg/dL (2.5-4.5)
[2017-11-29 02:38] LABS: Partial Thromboplastin Time 22.1 sec (22.0-30.0); Prothrombin Time 9.5 sec (9.0-12.0)
[2017-11-29 02:51] LABS: Creatine Kinase MB 2.3 ng/mL (0.0-2.4)
[2017-11-29 03:02] LABS: Troponin I 0.492 ng/mL (0.000-0.034)
[2017-11-29 03:08] LABS: Appearance,Urine Cloudy (Clear); Bacteria,Urine Rare /hpf; Bilirubin,Urine Negative (Negative); Blood,Urine Moderate (Negative); Color,Urine Yellow; Glucose,Urine (UA) Negative (Negative); Ketones,Urine Negative (Negative); Leukocyte Esterase,Urine Large (Negative); Mucus,Urine Rare /hpf; Nitrite,Urine Negative (Negative); PH, Urine 6.5 (5.0-8.0); Protein,Urine 1+ (Negative); RBC,Urine 51 /hpf (0-5); Specific Gravity,Urine 1.012 (1.001-1.035); Urobilinogen,Urine <2.0 mg/dL (<2.0); WBC,Urine >182 /hpf (0-5)
[2017-11-29] MEDS: PROPOFOL 1,000 MG in EMPTY BAG 1 BAG IV SCH ×2 (03:24→08:30)
[2017-11-29 04:14] LABS: ALT 82 U/L (9-52); AST 62 U/L (14-36); Alkaline Phosphatase 186 U/L (38-126); Anion Gap 9 mmol/L; Blood Urea Nitrogen 7 mg/dL (7-17); Calcium 8.4 mg/dL (8.4-10.2); Carbon Dioxide 25 mmol/L (22-30); Chloride 104 mmol/L (98-107); Glucose 131 mg/dL (74-99); Potassium 4.1 mmol/L (3.5-5.1); Sodium 138 mmol/L (137-145); Total Bilirubin 0.5 mg/dL (0.2-1.3); Total Protein 5.8 g/dL (6.3-8.2)
[2017-11-29] MEDS ORDERED: ACETAMINOPHEN IV (For NPO) 1,000 MG in EMPTY BAG 1 BAG IVPB ONE (04:30)
[2017-11-29 07:06] VITALS: BMI 22.5
--- NOTE | 2017-11-29 07:12 | XR ---
EXAMINATION TYPE: XR chest 1V portable DATE OF EXAM: 11/29/2017 COMPARISON: 11/28/2017 HISTORY: SOB, Follow Up FINDINGS: Indwelling tubes and catheters are unchanged. No change in bibasilar opacities. Stable appearance of the cardio-mediastinal structures at this time. IMPRESSION: 1. Stable portable chest. Clinical correlation and follow up until resolution is recommended.
--- NOTE | 2017-11-29 07:13 | P.PN ---
Progress Note - Text 11/29 652am 47-year-old female status post cystoscopy and lithotripsy with Dr. Iglesias. I was involved in the care of the patient postoperatively in the recovery room. On arrival she was tachycardic hyperthermic with a temperature of 103 and hypertensive. After a brief discussion with the birth certificate clerk and looking at the overall picture i decided to initiate the malignant hyperthermia protocol. Patient was given dantrolene sodium as per her weight ice packs were placed around her body and we changed her IV bags to Cold solution. I gave her 2.5 mg/ kg initial dose and then repeated another dose of dantrolene with 1 mg/kg. At that point her body temperature came down and we sent out arterial blood gas and complete set of labs. Her Arterial blood gas was not satisfactory so I decided to intubate her and I also inserted a central line and the birth certificate clerk started arterial line for the patient so that it'll be easy to draw blood on her as she needed it. We also put a Quiros and did some bladder lavage with cold solution. At that point i called called the malignant hyperthermia hotline and discussed the case with the doctor Brayan Martinez who was national expansion recruiter and he agreed with all the treatment measures that had been taken and also suggested that we repeat the labs every 6 hours and repeat the dose of dantrolene 1 mg/kg every 6 hours for the next 24 hours. Patient was stable and was sent up to the ICU. I saw the patient this morning she is hemodynamically stable, her pO2 has increased and her FiO2 is down to the 70 percent. I did note that her troponin level and the creatinine kinase levels were elevated this morning and I intend to follow up with Dr. Rader.
[2017-11-29 07:48] LABS: ABG Base Excess 1.7 mmol/L; ABG HCO3 25 mmol/L (21-25); ABG PCO2 33 mmHg (35-45); ABG PH 7.49 (7.35-7.45); ABG PO2 208 mmHg (83-108); ABG TCO2 26 mmol/L (19-24)
[2017-11-29] MEDS: FAMOTIDINE 20 MG/2 ML VIAL IV SCH ×2 (08:31→20:58)
[2017-11-29] MEDS: CHLORHEXIDINE GLUCONATE 15 ML CUP MUCOUS MEM SCH ×2 (08:31→19:56)
[2017-11-29] MEDS: LACTATED RINGERS 1,000 ML IV SCH (08:58)
[2017-11-29 09:44] LABS: HCT 31.5 % (34.0-46.0); HGB 10.6 gm/dL (11.4-16.0); MCH 31.9 pg (25.0-35.0); MCHC 33.8 g/dL (31.0-37.0); MCV 94.6 fL (80.0-100.0); Mean Platelet Volume 7.5; Platelet Count 163 k/uL (150-450); RBC 3.33 m/uL (3.80-5.40); RDW 13.1 % (11.5-15.5); WBC 11.7 k/uL (3.8-10.6)
[2017-11-29 09:54] LABS: Partial Thromboplastin Time 22.6 sec (22.0-30.0); Prothrombin Time 9.9 sec (9.0-12.0)
[2017-11-29 09:57] LABS: ALT 65 U/L (9-52); AST 43 U/L (14-36); Albumin 2.7 g/dL (3.5-5.0); Alkaline Phosphatase 169 U/L (38-126); Amylase <30 U/L (30-110); Anion Gap 8 mmol/L; Blood Urea Nitrogen 10 mg/dL (7-17); Calcium 8.2 mg/dL (8.4-10.2); Carbon Dioxide 24 mmol/L (22-30); Chloride 104 mmol/L (98-107); Creatine Kinase 187 U/L (30-135); GGT 143 U/L (12-43); Lipase 15 U/L (23-300); Phosphorus 4.6 mg/dL (2.5-4.5); Potassium 3.9 mmol/L (3.5-5.1); Sodium 136 mmol/L (137-145); Total Bilirubin 0.4 mg/dL (0.2-1.3); Total Protein 5.3 g/dL (6.3-8.2)
[2017-11-29 10:09] LABS: Glucose 102 mg/dL (74-99)
[2017-11-29] MEDS ORDERED: Magnesium Replacement Protocol 1 EACH MISC MISCELLANE PRN (10:18)
[2017-11-29 10:40] LABS: Creatine Kinase MB 2.3 ng/mL (0.0-2.4)
[2017-11-29] MEDS: MAGNESIUM SULFATE-D5W PMX 1 GM in DEXTROSE/WATER 1 100ML.BAG IVPB SCH ×2 (10:51→11:14)
[2017-11-29 11:03] LABS: Troponin I 0.578 ng/mL (0.000-0.034)
[2017-11-29] MEDS ORDERED: Potassium Replacement Protocol 1 EACH MISC MISCELLANE PRN (11:15)
--- NOTE | 2017-11-29 11:30 | P.CNPUL ---
History of Present Illness Consult date: 11/29/17 Requesting physician: Anson Iglesias Reason for consult: other (ICU management) Chief complaint: Flank pain History of present illness: This is a 47-year-old female, no previous significant medical history except for rectal prolapse, and kidney stone. Patient had no previous history of urinary tract infections, on the evening of 11/24/2017, patient developed a sudden episode of right flank pain radiating down to the right lower quadrant. Seen at [facility] initially and a CT of the abdomen and pelvis showed markedly high to ureter nephrosis, and thinning of the right renal parenchyma. Transferred to [facility], seen by Dr. Iglesias and she was initially offered ureteral stent or nephrostomy tube, patient declined, and ramus were made for her to undergo this elective removal of the calculus. However on 11/28/2017, patient presented with intractable symptoms of pain. She was also complaining of nausea and vomiting. Hence the patient underwent late afternoon yesterday cystoscopy, right ureteroscopy and stone basketing, right ureteral stent insertion. This was done under general anesthesia. And the patient received succinylcholine prior to intubation. Her surgery was relatively uneventful, however when the patient was sent to the recovery room, were and she was noted to develop tachycardia, hyper therapy with a temp of 103 , hypertension, and muscle rigidity. She was seen by the anesthesiologist Dr. 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 Patient was given dantrolene, ice packs were placed, cooling blanket was placed , and her ABG was noted to be poor, hence the patient was reintubated, transferred to the ICU, kept on that malignant hyperthermia protocol, and I was consulted to see the patient. She is presently on mechanical ventilation, tidal volume of 400 assist control rate of 10, FiO2 of 45%, and PEEP of 5. ABG this morning showed a pO2 of 208 pCO2 of 33 pH of 7.49. All labs were reviewed , she was noted to have slightly elevated liver enzymes, troponin was also elevated, EKG is unremarkable, CPK was 245, initiated a cardiology consultation. Initial chest x-ray after intubation showed evidence of pulmonary alveolar edema, follow-up chest x-ray this morning shows significant improvement, and that was truly reflected on her arterial blood gases today compared to the ABG yesterday. Patient did receive Lasix overnight. Echocardiogram is pending, patient remains at this point on the dantrolene protocol for malignant hyperthermia. She is not tachycardic anymore. Her temp is significantly improved, she is hemodynamically stable at this point, remains on propofol which I plan to discontinue and probably consider weaning trial on this patient. Review of Systems ROS unobtainable: due to endotracheal tube (According to the mother patient is healthy, not taking any medications, has not had any previous surgery whatsoever in the past. And she is asymptomatic prior to this presentation.) Past Medical History Past Medical History: No Reported History Additional Past Medical History / Comment(s): kidney stone, rectal prolapse 11/23 History of Any Multi-Drug Resistant Organisms: None Reported Past Surgical History: No Surgical Hx Reported Additional Past Surgical History / Comment(s): teeth removed Past Anesthesia/Blood Transfusion Reactions: Malignant Hyperthermia Additional Past Anesthesia/Blood Transfusion Reaction / Comment(s): this admission malignant hyperthermia Past Psychological History: No Psychological Hx Reported Smoking Status: Former smoker Past Alcohol Use History: None Reported Past Drug Use History: Marijuana Additional Drug Use History / Comment(s): occasional use, not for a while, - Past Family History Mother Family Medical History: Asthma Additional Family Medical History / Comment(s): kidney stones Father Family Medical History: No Reported History Medications and Allergies Home Medications Medication Instructions Recorded Confirmed Type Hydrocodone/Acetaminophen [[place] 1 - 2 tab PO Q4HR PRN 11/28/17 11/28/17 History 5-325] Allergies Allergy/AdvReac Type Severity Reaction Status Date / Time No Known Allergies Allergy Verified 11/28/17 21:00 Physical Exam Vitals: Vital Signs Temp Pulse Pulse Resp BP BP BP 11/29/17 11:00 100.2 F H 81 15 131/95 11/29/17 10:30 76 128/87 11/29/17 10:00 100.0 F H 78 115/84 11/29/17 09:30 76 125/91 11/29/17 09:00 99.8 F H 77 126/93 11/29/17 08:30 80 115/85 11/29/17 08:00 80 116/83 11/29/17 07:30 84 115/84 11/29/17 07:00 100.4 F H 83 125/93 09/21/18 06:30 79 120/92 18 06:00 100.2 F H 82 22 119/85 11/29/17 05:30 81 21 113/82 11/29/17 05:00 80 22 115/81 11/29/17 04:30 82 21 112/80 11/29/17 04:00 100.4 F H 83 22 118/90 18 03:30 83 22 118/90 11/29/17 03:00 100.4 F H 85 19 112/83 11/29/17 02:30 86 16 113/80 11/29/17 02:00 100.4 F H 90 16 107/83 11/29/17 01:30 77 16 86/64 11/29/17 01:00 100 F H 81 18 94/71 11/29/17 00:30 81 91/71 11/29/17 00:00 100.4 F H 89 17 101/72 18 23:33 82 92/70 11/28/17 23:30 86 92/70 11/28/17 23:00 100.4 F H 83 18 90/64 18 22:30 92 102/74 18 22:00 98 152/105 11/28/17 21:53 106 H 11/28/17 21:45 99.4 F 110 H 15 129/67 124/73 18 21:30 99.3 F 104 H 12 133/69 132/77 18 21:15 99.0 F 11/28/17 21:05 99.9 F H 11/28/17 21:00 110 H 10 L 138/75 136/68 18 20:50 99.7 F H 18 20:45 112 H 10 L 132/77 128/67 2018 20:40 100.3 F H 11/28/17 20:35 135 H 24 136/82 129/80 18 20:15 100 25 H 137/82 135/77 18 20:13 100.7 F H 11/28/17 20:12 100.7 F H 11/28/17 20:05 114 H 28 H 135/81 18 20:02 100.3 F H 11/28/17 19:45 101.2 F H 11/28/17 19:40 100.9 F H 11/28/17 19:39 100.6 F H 11/28/17 19:26 102.3 F H 128 H 28 H 155/80 11/28/17 15:10 100.3 F H 100 16 131/73 Pulse Ox 11/29/17 11:00 99 11/29/17 10:30 98 11/29/17 10:00 97 11/29/17 09:30 100 11/29/17 09:00 99 11/29/17 08:30 99 11/29/17 08:00 99 11/29/17 07:30 98 11/29/17 07:00 99 11/29/17 06:30 98 11/29/17 06:00 99 11/29/17 05:30 99 11/29/17 05:00 99 11/29/17 04:30 99 11/29/17 04:00 99 11/29/17 03:30 100 11/29/17 03:00 99 11/29/17 02:30 99 11/29/17 02:00 97 11/29/17 01:30 99 11/29/17 01:00 99 11/29/17 00:30 99 11/29/17 00:00 99 11/28/17 23:33 99 11/28/17 23:30 99 11/28/17 23:00 100 11/28/17 22:30 97 11/28/17 22:00 79 L 11/28/17 21:53 11/28/17 21:45 99 11/28/17 21:30 97 11/28/17 21:15 11/28/17 21:05 11/28/17 21:00 97 11/28/17 20:50 11/28/17 20:45 100 11/28/17 20:40 11/28/17 20:35 95 11/28/17 20:15 95 11/28/17 20:13 11/28/17 20:12 11/28/17 20:05 94 L 11/28/17 20:02 11/28/17 19:45 11/28/17 19:40 11/28/17 19:39 11/28/17 19:26 90 L 11/28/17 15:10 96 Intake and Output 11/28/17 11/29/17 11/29/17 22:59 06:59 14:59 Intake Total 1878 922.035 611.606 Output Total 0 2095 350 Balance 1878 -1172.965 261.606 Intake: IV 1878 860 545 0.9 @10 80 50 Dantrolene 180 120 Lactated Ringers 1,000 ml 600 375 @ 75 mls/hr IV .[id number] LUDIN Rx#:[id number] Intake, IV Titration 62.035 66.606 Amount Propofol 1,000 mg In 62.035 66.606 Empty Bag 1 bag @ Titrate IV .Q0M LUDIN Rx#: [id number] Output: Urine 2094 350 Estimated Blood Loss 0 Other: Voiding Method Indwelling Catheter Indwelling Catheter # Bowel Movements 2 Weight 61.4 kg 61.4 kg ABP, PAP, CO, CI - Last 8 Hours Arterial Blood Pressure 143/91 Arterial Blood Pressure 122/116 Arterial Blood Pressure 128/86 Arterial Blood Pressure 114/97 Arterial Blood Pressure 124/89 Arterial Blood Pressure 125/84 Arterial Blood Pressure 129/84 Arterial Blood Pressure 112/106 Arterial Blood Pressure 118/110 Arterial Blood Pressure 120/110 Arterial Blood Pressure 121/85 Arterial Blood Pressure 126/86 Arterial Blood Pressure 131/93 Arterial Blood Pressure 128/89 Arterial Blood Pressure 124/93 Arterial Blood Pressure 118/97 Physical Exam: Revealed a 47-year-old female in no distress. On mechanical ventilation. Head: Atraumatic, normocephalic, endotracheal tube and orogastric tube are intact. HEENT:[Neck is supple.] [No neck masses.] [No thyromegaly.] [No JVD.] PERRLA, EOMI, no neck masses, no JVD, moist mucous membranes Chest: [Minimal fine crackles at the left base, right side is relatively clear, no rhonchi, no wheezes. Cardiac Exam: [Normal S1 and S2, no S3 gallop, no murmur.] Abdomen: [Soft, nontender, no megaly, no rebound, no guarding, normal bowel sounds.] Extremities: [No clubbing, no edema, no cyanosis.] Neurological Exam: [Arousable, opens eyes, follows very simple instructions, no gross focal deficit, however the patient is on a lower dose of propofol at this point. Lymphatics: No lymphadenopathy. Results - Laboratory Findings CBC and BMP: 11/29/17 09:00 11/29/17 09:00 ABG ABG pH 7.49 (7.35-7.45) H 11/29/17 07:40 ABG pCO2 33 mmHg (35-45) L 11/29/17 07:40 ABG pO2 208 mmHg (83-108) H 11/29/17 07:40 ABG O2 Saturation 100.0 % (94-97) H 11/29/17 07:40 PT/INR, D-dimer PT 9.9 sec (9.0-12.0) 11/29/17 09:00 INR 1.0 (<1.2) 11/29/17 09:00 Abnormal lab findings: Abnormal Labs 11/28/17 11/28/17 11/28/17 19:49 19:52 19:52 WBC 2.2 L RBC 3.65 L Hgb Hct Plt Count Neutrophils # Neutrophils # (Manual) Lymphocytes # 0.2 L Lymphocytes # (Manual) ABG pH ABG pCO2 ABG pO2 48 L* ABG Total CO2 ABG O2 Saturation 86.0 L Sodium 135 L Glucose 147 H POC Glucose (mg/dL) Calcium 8.3 L Phosphorus Magnesium 1.5 L GGT AST 68 H ALT 71 H Alkaline Phosphatase 154 H Creatine Kinase Total Creatine Kinase Troponin I Total Protein 5.7 L Albumin 3.0 L Amylase <30 L Lipase Urine Appearance Urine Protein Urine Blood Ur Leukocyte Esterase Urine RBC Urine WBC Urine WBC Clumps Urine Bacteria Urine Mucus 11/28/17 11/28/17 11/28/17 19:52 21:07 21:10 WBC RBC Hgb Hct Plt Count Neutrophils # Neutrophils # (Manual) Lymphocytes # Lymphocytes # (Manual) ABG pH ABG pCO2 ABG pO2 69 L ABG Total CO2 ABG O2 Saturation Sodium Glucose POC Glucose (mg/dL) Calcium Phosphorus Magnesium GGT AST ALT Alkaline Phosphatase Creatine Kinase 176 H Total Creatine Kinase Troponin I Total Protein Albumin Amylase Lipase Urine Appearance Cloudy H Urine Protein 1+ H Urine Blood Moderate H Ur Leukocyte Esterase Large H Urine RBC 51 H Urine WBC >182 H Urine WBC Clumps Many H Urine Bacteria Rare H Urine Mucus Rare H 11/28/17 11/28/17 11/28/17 21:54 22:35 22:50 WBC RBC Hgb Hct Plt Count Neutrophils # Neutrophils # (Manual) Lymphocytes # Lymphocytes # (Manual) ABG pH ABG pCO2 ABG pO2 ABG Total CO2 ABG O2 Saturation 98.5 H Sodium 136 L Glucose 157 H POC Glucose (mg/dL) 172 H Calcium 7.8 L Phosphorus Magnesium GGT AST ALT Alkaline Phosphatase Creatine Kinase Total Creatine Kinase Troponin I Total Protein Albumin Amylase Lipase Urine Appearance Urine Protein Urine Blood Ur Leukocyte Esterase Urine RBC Urine WBC Urine WBC Clumps Urine Bacteria Urine Mucus 11/28/17 11/29/17 11/29/17 22:50 02:00 02:00 WBC RBC 3.42 L Hgb 10.6 L Hct 32.8 L Plt Count 140 L Neutrophils # Neutrophils # (Manual) 9.10 H Lymphocytes # Lymphocytes # (Manual) 0.29 L ABG pH ABG pCO2 ABG pO2 ABG Total CO2 ABG O2 Saturation Sodium Glucose 131 H POC Glucose (mg/dL) Calcium Phosphorus Magnesium GGT 155 H AST 62 H ALT 82 H Alkaline Phosphatase 186 H Creatine Kinase Total Creatine Kinase 245 H Troponin I 0.492 H* Total Protein 5.8 L Albumin 3.0 L Amylase <30 L Lipase <10 L Urine Appearance Urine Protein Urine Blood Ur Leukocyte Esterase Urine RBC Urine WBC Urine WBC Clumps Urine Bacteria Urine Mucus 11/29/17 11/29/17 11/29/17 02:00 07:40 09:00 WBC 12.7 H RBC 3.51 L Hgb 10.9 L Hct Plt Count 145 L Neutrophils # 11.7 H Neutrophils # (Manual) Lymphocytes # 0.4 L Lymphocytes # (Manual) ABG pH 7.49 H ABG pCO2 33 L ABG pO2 208 H ABG Total CO2 26 H ABG O2 Saturation 100.0 H Sodium 136 L Glucose 102 H POC Glucose (mg/dL) Calcium 8.2 L Phosphorus 4.6 H Magnesium GGT 143 H AST 43 H ALT 65 H Alkaline Phosphatase 169 H Creatine Kinase 187 H Total Creatine Kinase Troponin I Total Protein 5.3 L Albumin 2.7 L Amylase <30 L Lipase 15 L Urine Appearance Urine Protein Urine Blood Ur Leukocyte Esterase Urine RBC Urine WBC Urine WBC Clumps Urine Bacteria Urine Mucus 11/29/17 11/29/17 09:00 09:00 WBC 11.7 H RBC 3.33 L Hgb 10.6 L Hct 31.5 L Plt Count Neutrophils # Neutrophils # (Manual) Lymphocytes # Lymphocytes # (Manual) ABG pH ABG pCO2 ABG pO2 ABG Total CO2 ABG O2 Saturation Sodium Glucose POC Glucose (mg/dL) Calcium Phosphorus Magnesium GGT AST ALT Alkaline Phosphatase Creatine Kinase Total Creatine Kinase Troponin I 0.578 H* Total Protein Albumin Amylase Lipase Urine Appearance Urine Protein Urine Blood Ur Leukocyte Esterase Urine RBC Urine WBC Urine WBC Clumps Urine Bacteria Urine Mucus - Diagnostic Findings Chest x-ray: image reviewed (As noted in HPI.) Assessment and Plan Assessment: Impression: 1: Postoperative hypoxic respiratory failure, secondary to malignant hyperthermia, 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 2: Malignant hyperthermia, according to the mother no family history of malignant hyperthermia, patient herself never had any surgery in the past. 3 acute ureterolithiasis and status post right ureteroscopy, lithotripsy, stone basketing, right ureteral stent insertion. Postoperative day #1 4 elevated troponin, nonspecific, patient had a relatively normal EKG, however considering the findings on the chest x-ray, suggestive of interstitial edema, we will go ahead and initiate cardiac consultation. 5 interstitial edema, could be cardiogenic or noncardiogenic, at this point it is not clear. Considering the response to diuretics, it is felt to be more cardiogenic in nature. Although the possibility of noncardiogenic pulmonary edema is not entirely ruled out at this point yet. Recommendation: Continue present supportive care measures, continue dantrolene, continue GI and DVT prophylaxis, mother was advised to notify other family members to be checked in the future for malignant hyperthermia. I plan to give the patient a weaning trial with pressure support of 8 and CPAP, however I'm waiting for the patient to wake up from propofol, and we will follow closely. Critical care time is 55 minutes. Time with Patient: Greater than 30
[2017-11-29] MEDS: POTASSIUM CHLORIDE 10 MEQ in WATER FOR INJECTION 1 100ML.BAG IVPB SCH ×2 (11:45→13:00)
[2017-11-29] MEDS ORDERED: FUROSEMIDE 10 MG/ML 2 ML VIAL IV STA (11:58)
[2017-11-29 12:46] LABS: ABG HCO3 24 mmol/L (21-25); ABG Oxygen Saturation 99.7 % (94-97); ABG PCO2 31 mmHg (35-45); ABG PO2 161 mmHg (83-108); ABG TCO2 25 mmol/L (19-24)
[2017-11-29 14:46] LABS: HCT 33.4 % (34.0-46.0); HGB 11.1 gm/dL (11.4-16.0); MCH 31.4 pg (25.0-35.0); MCHC 33.1 g/dL (31.0-37.0); MCV 94.6 fL (80.0-100.0); Mean Platelet Volume 7.6; Platelet Count 189 k/uL (150-450); RBC 3.53 m/uL (3.80-5.40); RDW 13.1 % (11.5-15.5)
[2017-11-29 14:52] LABS: Partial Thromboplastin Time 23.9 sec (22.0-30.0); Prothrombin Time 9.8 sec (9.0-12.0)
[2017-11-29 14:57] LABS: ALT 63 U/L (9-52); AST 42 U/L (14-36); Alkaline Phosphatase 185 U/L (38-126); Amylase <30 U/L (30-110); Anion Gap 10 mmol/L; Blood Urea Nitrogen 11 mg/dL (7-17); Calcium 8.4 mg/dL (8.4-10.2); Carbon Dioxide 23 mmol/L (22-30); Chloride 104 mmol/L (98-107); GGT 144 U/L (12-43); Glucose 103 mg/dL (74-99); Lipase 20 U/L (23-300); Magnesium 2.3 mg/dL (1.6-2.3); Phosphorus 4.6 mg/dL (2.5-4.5); Potassium 4.1 mmol/L (3.5-5.1); Sodium 137 mmol/L (137-145); Total Bilirubin 0.4 mg/dL (0.2-1.3); Total Protein 5.7 g/dL (6.3-8.2)
--- NOTE | 2017-11-29 17:25 | P.PN ---
Progress Note - Text Progress Note Date: 11/29/17 The patient underwent ureteroscopic removal of a large right distal ureteral calculus yesterday. There were no intraoperative complications, but postoperatively she developed malignant hyperthermia. She was intubated when I saw her this morning, but is now extubated. She is awake and alert, without complaints. The Quiros catheter is draining clear yellow urine. The catheter may be removed when no longer medically needed.
[2017-11-29 21:19] LABS: HCT 33.2 % (34.0-46.0); MCH 31.4 pg (25.0-35.0); MCHC 33.1 g/dL (31.0-37.0); MCV 95.1 fL (80.0-100.0); Mean Platelet Volume 7.9; Platelet Count 190 k/uL (150-450); RBC 3.49 m/uL (3.80-5.40); RDW 13.1 % (11.5-15.5); WBC 14.6 k/uL (3.8-10.6)
[2017-11-29 21:28] LABS: Partial Thromboplastin Time 23.1 sec (22.0-30.0); Prothrombin Time 9.7 sec (9.0-12.0)
[2017-11-29 21:29] LABS: ALT 58 U/L (9-52); AST 37 U/L (14-36); Albumin 2.9 g/dL (3.5-5.0); Alkaline Phosphatase 171 U/L (38-126); Amylase <30 U/L (30-110); Anion Gap 10 mmol/L; Blood Urea Nitrogen 13 mg/dL (7-17); Calcium 8.4 mg/dL (8.4-10.2); Carbon Dioxide 22 mmol/L (22-30); Chloride 105 mmol/L (98-107); Creatine Kinase 196 U/L (30-135); GGT 135 U/L (12-43); Glucose 107 mg/dL (74-99); Lipase 37 U/L (23-300); Magnesium 2.2 mg/dL (1.6-2.3); Phosphorus 3.5 mg/dL (2.5-4.5); Potassium 4.2 mmol/L (3.5-5.1); Sodium 137 mmol/L (137-145); Total Bilirubin 0.4 mg/dL (0.2-1.3); Total Protein 5.5 g/dL (6.3-8.2)
[2017-11-29 21:55] LABS: Creatine Kinase MB 2.8 ng/mL (0.0-2.4)
[2017-11-29 22:12] LABS: Troponin I 0.507 ng/mL (0.000-0.034)
[2017-11-30] MEDS: HEPARIN SODIUM,PORCINE 5,000 UNIT/ML 1 ML VIAL SQ SCH ×4 (00:24→23:12)
[2017-11-30] MEDS: LACTATED RINGERS 1,000 ML IV SCH ×2 (00:32→15:48)
[2017-11-30] MEDS: LOPERAMIDE 2 MG CAP PO PRN ×4 (01:21→17:40)
[2017-11-30] MEDS: ONDANSETRON 4 MG/2 ML VIAL IVP PRN ×2 (02:29→17:09)
[2017-11-30] MEDS ORDERED: ACETAMINOPHEN IV (For NPO) 1,000 MG in EMPTY BAG 1 BAG IVPB ONE (03:45)
[2017-11-30 04:54] LABS: Basophils % (A) 0 %; Eosinophils % (A) 0 %; HCT 33.3 % (34.0-46.0); HGB 10.6 gm/dL (11.4-16.0); Lymphocytes # (A) 1.3 k/uL (1.0-4.8); Lymphocytes % (A) 11 %; MCHC 31.9 g/dL (31.0-37.0); MCV 97.4 fL (80.0-100.0); Mean Platelet Volume 7.5; Monocytes # (A) 0.8 k/uL (0-1.0); Monocytes % (A) 7 %; Neutrophils # (A) 9.6 k/uL (1.3-7.7); Neutrophils % (A) 79 %; Platelet Count 186 k/uL (150-450); RBC 3.42 m/uL (3.80-5.40); WBC 12.3 k/uL (3.8-10.6)
[2017-11-30 05:02] LABS: Prothrombin Time 10.2 sec (9.0-12.0)
[2017-11-30 05:16] LABS: ALT 49 U/L (9-52); AST 29 U/L (14-36); Albumin 2.9 g/dL (3.5-5.0); Alkaline Phosphatase 167 U/L (38-126); Anion Gap 9 mmol/L; Blood Urea Nitrogen 13 mg/dL (7-17); Calcium 8.5 mg/dL (8.4-10.2); Carbon Dioxide 24 mmol/L (22-30); Chloride 104 mmol/L (98-107); Glucose 122 mg/dL (74-99); Magnesium 1.9 mg/dL (1.6-2.3); Phosphorus 3.2 mg/dL (2.5-4.5); Potassium 3.7 mmol/L (3.5-5.1); Sodium 137 mmol/L (137-145); Total Bilirubin 0.3 mg/dL (0.2-1.3); Total Protein 5.5 g/dL (6.3-8.2)
[2017-11-30] MEDS: POTASSIUM CHLORIDE 10 MEQ in WATER FOR INJECTION 1 100ML.BAG IVPB SCH ×2 (06:11→07:30)
--- NOTE | 2017-11-30 06:47 | XR ---
EXAMINATION TYPE: XR chest 1V portable DATE OF EXAM: 11/30/2017 HISTORY: Tube placement. REFERENCE: Previous study dated 11/29/2017. FINDINGS: There is a right internal jugular catheter in place. Its tip is at the cavoatrial junction. The patient has been extubated. The NG tube is been removed. There is improved aeration at the left lung base. There continues to be a tiny left effusion. IMPRESSION: IMPROVED AERATION, LEFT LUNG BASE.
--- NOTE | 2017-11-30 07:02 | ECHOF ---
Referral Reason:pulm edema MEASUREMENTS -------- HEIGHT: 165.1 cm WEIGHT: 61.2 kg BP: 127/92 IVSd: 1.1 cm (0.6 - 1.1) LVIDd: 5.1 cm (3.9 - 5.3) LVPWd: 1.1 cm (0.6 - 1.1) IVSs: 1.2 cm LVIDs: 4.7 cm LVPWs: 1.2 cm LAESV Index (A-L): 19.13 ml/m Ao Diam: 2.7 cm (2.0 - 3.7) AV Cusp: 1.7 cm (1.5 - 2.6) LA Diam: 2.9 cm (2.7 - 3.8) MV EXCURSION: 21.258 mm (> 18.000) MV EF SLOPE: 129 mm/s (70 - 150) EPSS: 0.8 cm MV E Camron: 0.77 m/s MV DecT: 194 ms MV A Camron: 0.76 m/s MV E/A Ratio: 1.01 RAP: 5.00 mmHg RVSP: 23.81 mmHg FINDINGS -------- Sinus rhythm. This was a technically good study. The left ventricular size is normal. Left ventricular wall thickness is normal. There is severe g lobal hypokinesis of LV . Overall left ventricular systolic function is moderate-severely impaired with, an EF between 30 - 35 %. The right ventricle is normal in size and function. Normal LA size by volume 22+/-6 ml/m2. The right atrium is normal in size. The aortic valve is trileaflet, and appears structurally normal. No aortic stenosis or regurgitation. Severe mitral regurgitation is present. No regurgitation noted The right ventricular systolic pressure, as measured by Doppler, is 23.81mmH g. Pulmonic valve appears structurally normal. The aortic root size is normal. Normal inferior vena cava with normal inspiratory collapse consistent with estimated right atrial pre ssure of 5 mmHg. The pericardium is normal. CONCLUSIONS -------- 1. Sinus rhythm. 2. This was a technically good study. 3. The left ventricular size is normal. 4. Left ventricular wall thickness is normal. 5. There is severe global hypokinesis of LV . 6. The right ventricle is normal in size and function. 7. Normal LA size by volume 22+/-6 ml/m2. 8. The right atrium is normal in size. 9. The aortic valve is trileaflet, and appears structurally normal. No aortic stenosis or regurgitati on. 10. Severe mitral regurgitation is present. 11. No regurgitation noted 12. The right ventricular systolic pressure, as measured by Doppler, is 23.81mmHg. 13. Pulmonic valve appears structurally normal. 14. The aortic root size is normal. 15. Normal inferior vena cava with normal inspiratory collapse consistent with estimated right atrial pressure of 5 mmHg. 16. The pericardium is normal. [employer]CYCLE ENGINE ASSEMBLER: Rowena Mcgill RDCS
[2017-11-30] MEDS: FAMOTIDINE 20 MG/2 ML VIAL IV SCH ×2 (08:15→22:32)
[2017-11-30 09:26] LABS: Appearance,Urine Turbid (Clear); Bacteria,Urine Occasional /hpf; Bilirubin,Urine Negative (Negative); Blood,Urine Large (Negative); Color,Urine Yellow; Glucose,Urine (UA) Negative (Negative); Ketones,Urine Negative (Negative); Leukocyte Esterase,Urine Large (Negative); Nitrite,Urine Negative (Negative); PH, Urine 6.5 (5.0-8.0); Protein,Urine 1+ (Negative); RBC,Urine 131 /hpf (0-5); Specific Gravity,Urine 1.008 (1.001-1.035); Urobilinogen,Urine <2.0 mg/dL (<2.0); WBC,Urine >182 /hpf (0-5)
--- NOTE | 2017-11-30 10:27 | P.PN ---
Progress Note - Text Progress Note Date: 11/30/17 The patient is hemodynamically stable and her temperature is around 100. She denies any shortness of breath or abdominal pain. Urine is grossly clear. Urine culture is pending. She will be observed in the intensive care unit for at least another 24 hours.
[2017-11-30 10:49] LABS: Magnesium 2.1 mg/dL (1.6-2.3); Potassium 4.3 mmol/L (3.5-5.1)
--- NOTE | 2017-11-30 10:57 | P.PN ---
Subjective Progress Note Date: 11/30/17 Principal diagnosis: Postoperative malignant hyperthermia, hypoxic respiratory failure requiring intubation and mechanical ventilation. This is a 47-year-old female, no previous significant medical history except for rectal prolapse, and kidney stone. Patient had no previous history of urinary tract infections, on the evening of 11/24/2017, patient developed a sudden episode of right flank pain radiating down to the right lower quadrant. Seen at [facility] initially and a CT of the abdomen and pelvis showed markedly high to ureter nephrosis, and thinning of the right renal parenchyma. Transferred to [facility], seen by Dr. Iglesias and she was initially offered ureteral stent or nephrostomy tube, patient declined, and ramus were made for her to undergo this elective removal of the calculus. However on 11/28/2017, patient presented with intractable symptoms of pain. She was also complaining of nausea and vomiting. Hence the patient underwent late afternoon yesterday cystoscopy, right ureteroscopy and stone basketing, right ureteral stent insertion. This was done under general anesthesia. And the patient received succinylcholine prior to intubation. Her surgery was relatively uneventful, however when the patient was sent to the recovery room, were and she was noted to develop tachycardia, hyper therapy with a temp of 103 , hypertension, and muscle rigidity. She was seen by the anesthesiologist Dr. 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 Patient was given dantrolene, ice packs were placed, cooling blanket was placed , and her ABG was noted to be poor, hence the patient was reintubated, transferred to the ICU, kept on that malignant hyperthermia protocol, and I was consulted to see the patient. She is presently on mechanical ventilation, tidal volume of 400 assist control rate of 10, FiO2 of 45%, and PEEP of 5. ABG this morning showed a pO2 of 208 pCO2 of 33 pH of 7.49. All labs were reviewed , she was noted to have slightly elevated liver enzymes, troponin was also elevated, EKG is unremarkable, CPK was 245, initiated a cardiology consultation. Initial chest x-ray after intubation showed evidence of pulmonary alveolar edema, follow-up chest x-ray this morning shows significant improvement, and that was truly reflected on her arterial blood gases today compared to the ABG yesterday. Patient did receive Lasix overnight. Echocardiogram is pending, patient remains at this point on the dantrolene protocol for malignant hyperthermia. She is not tachycardic anymore. Her temp is significantly improved, she is hemodynamically stable at this point, remains on propofol which I plan to discontinue and probably consider weaning trial on this patient. Patient was reevaluated today on 11/30/2017, she was extubated yesterday, and she tolerated the extubation relatively well. Presently on 3 L nasal cannula, her chest x-ray has completely cleared with diuresis, her echocardiogram was reviewed and clearly shows severe LV dysfunction. Patient spiked fever again last night, she is still on cooling blankets, and received Tylenol last night. Today she is afebrile, she is feeling much better, asymptomatic, no cough no wheezing no shortness of breath no chest pain no nausea no vomiting or abdominal pain. CBC was noted to be relatively normal. Basic metabolic profile is normal. Renal profile is normal. Her urinalysis is showing some pyuria and hematuria, remains on Rocephin, culture on the urine is pending. Objective - Vital Signs Vital signs: Vital Signs Temp 100.2 F H 11/30/17 10:00 Pulse 88 11/30/17 10:00 Resp 16 11/30/17 10:00 BP 111/76 11/30/17 10:00 Pulse Ox 98 11/30/17 10:00 Intake & Output 11/29/17 11/30/17 11/30/17 18:59 06:59 18:59 Intake Total 4241.577 0107 245 Output Total 1955 670 525 Balance -638.394 471 -280 Weight 62.9 kg Intake: IV 1250 1141 245 0.9 @10 185 130 95 Dantrolene 240 Lactated Ringers 1,000 ml 825 975 150 @ 75 mls/hr IV .[id number] LUDIN Rx#:[id number] pressure bag 36 Intake, IV Titration 66.606 Amount Propofol 1,000 mg In 66.606 Empty Bag 1 bag @ Titrate IV .Q0M LUDIN Rx#: [id number] Output: Urine 5 670 525 Other: Voiding Method Indwelling Catheter Indwelling Catheter Indwelling Catheter # Bowel Movements 1 ABP, PAP, CO, CI - Last Documented Arterial Blood Pressure 130/87 - Exam Physical Exam: 47-year-old female on nasal cannula, in no distress. HEENT:[Neck is supple.] [No neck masses.] [No thyromegaly.] [No JVD.] Chest: [Clear throughout, no crackles, no rhonchi, no wheezes.] Cardiac Exam: [Normal S1 and S2, no S3 gallop, no murmur.] Abdomen: [Soft, nontender, no megaly, no rebound, no guarding, normal bowel sounds.] Extremities: [No clubbing, no edema, no cyanosis.] Neurological Exam: [No focal neurologic deficit.] Lymphatics: No lymphadenopathy. Psychiatric: Normal mood, affect and mental status examination. - Labs CBC & Chem 7: 11/30/17 04:30 11/30/17 04:30 Labs: Abnormal Lab Results - Last 24 Hours (Table) 11/29/17 11/29/17 11/29/17 Range/Units 09:00 12:42 14:29 WBC (3.8-10.6) k/uL RBC (3.80-5.40) m/uL Hgb (11.4-16.0) gm/dL Hct (34.0-46.0) % Neutrophils # (1.3-7.7) k/uL ABG pH 7.50 H (7.35-7.45) ABG pCO2 31 L (35-45) mmHg ABG pO2 161 H (83-108) mmHg ABG Total CO2 25 H (19-24) mmol/L ABG O2 Saturation 99.7 H (94-97) % Glucose 103 H (74-99) mg/dL Phosphorus 4.6 H (2.5-4.5) mg/dL GGT 144 H (12-43) U/L AST 42 H (14-36) U/L ALT 63 H (9-52) U/L Alkaline Phosphatase 185 H (38-126) U/L Creatine Kinase (30-135) U/L CK-MB (CK-2) (0.0-2.4) ng/mL Troponin I 0.578 H* (0.000-0.034) ng/mL Total Protein 5.7 L (6.3-8.2) g/dL Albumin 3.0 L (3.5-5.0) g/dL Amylase <30 L (30-110) U/L Lipase 20 L (23-300) U/L Urine Appearance (Clear) Urine Protein (Negative) Urine Blood (Negative) Ur Leukocyte Esterase (Negative) Urine RBC (0-5) /hpf Urine WBC (0-5) /hpf Urine WBC Clumps (None) /hpf Urine Bacteria (None) /hpf 11/29/17 11/29/17 11/29/17 Range/Units 14:29 14:29 14:29 WBC 15.0 H (3.8-10.6) k/uL RBC 3.53 L (3.80-5.40) m/uL Hgb 11.1 L (11.4-16.0) gm/dL Hct 33.4 L (34.0-46.0) % Neutrophils # (1.3-7.7) k/uL ABG pH (7.35-7.45) ABG pCO2 (35-45) mmHg ABG pO2 (83-108) mmHg ABG Total CO2 (19-24) mmol/L ABG O2 Saturation (94-97) % Glucose (74-99) mg/dL Phosphorus (2.5-4.5) mg/dL GGT (12-43) U/L AST (14-36) U/L ALT (9-52) U/L Alkaline Phosphatase (38-126) U/L Creatine Kinase 212 H (30-135) U/L CK-MB (CK-2) (0.0-2.4) ng/mL Troponin I 0.712 H* (0.000-0.034) ng/mL Total Protein (6.3-8.2) g/dL Albumin (3.5-5.0) g/dL Amylase (30-110) U/L Lipase (23-300) U/L Urine Appearance (Clear) Urine Protein (Negative) Urine Blood (Negative) Ur Leukocyte Esterase (Negative) Urine RBC (0-5) /hpf Urine WBC (0-5) /hpf Urine WBC Clumps (None) /hpf Urine Bacteria (None) /hpf 11/29/17 11/29/17 11/29/17 Range/Units 21:00 21:00 21:00 WBC 14.6 H (3.8-10.6) k/uL RBC 3.49 L (3.80-5.40) m/uL Hgb 11.0 L (11.4-16.0) gm/dL Hct 33.2 L (34.0-46.0) % Neutrophils # (1.3-7.7) k/uL ABG pH (7.35-7.45) ABG pCO2 (35-45) mmHg ABG pO2 (83-108) mmHg ABG Total CO2 (19-24) mmol/L ABG O2 Saturation (94-97) % Glucose 107 H (74-99) mg/dL Phosphorus (2.5-4.5) mg/dL GGT 135 H (12-43) U/L AST 37 H (14-36) U/L ALT 58 H (9-52) U/L Alkaline Phosphatase 171 H (38-126) U/L Creatine Kinase 196 H (30-135) U/L CK-MB (CK-2) 2.8 H (0.0-2.4) ng/mL Troponin I 0.507 H* (0.000-0.034) ng/mL Total Protein 5.5 L (6.3-8.2) g/dL Albumin 2.9 L (3.5-5.0) g/dL Amylase <30 L (30-110) U/L Lipase (23-300) U/L Urine Appearance (Clear) Urine Protein (Negative) Urine Blood (Negative) Ur Leukocyte Esterase (Negative) Urine RBC (0-5) /hpf Urine WBC (0-5) /hpf Urine WBC Clumps (None) /hpf Urine Bacteria (None) /hpf 11/30/17 11/30/17 11/30/17 Range/Units 04:30 04:30 08:55 WBC 12.3 H (3.8-10.6) k/uL RBC 3.42 L (3.80-5.40) m/uL Hgb 10.6 L (11.4-16.0) gm/dL Hct 33.3 L (34.0-46.0) % Neutrophils # 9.6 H (1.3-7.7) k/uL ABG pH (7.35-7.45) ABG pCO2 (35-45) mmHg ABG pO2 (83-108) mmHg ABG Total CO2 (19-24) mmol/L ABG O2 Saturation (94-97) % Glucose 122 H (74-99) mg/dL Phosphorus (2.5-4.5) mg/dL GGT (12-43) U/L AST (14-36) U/L ALT (9-52) U/L Alkaline Phosphatase 167 H (38-126) U/L Creatine Kinase (30-135) U/L CK-MB (CK-2) (0.0-2.4) ng/mL Troponin I (0.000-0.034) ng/mL Total Protein 5.5 L (6.3-8.2) g/dL Albumin 2.9 L (3.5-5.0) g/dL Amylase (30-110) U/L Lipase (23-300) U/L Urine Appearance Turbid H (Clear) Urine Protein 1+ H (Negative) Urine Blood Large H (Negative) Ur Leukocyte Esterase Large H (Negative) Urine RBC 131 H (0-5) /hpf Urine WBC >182 H (0-5) /hpf Urine WBC Clumps Many H (None) /hpf Urine Bacteria Occasional H (None) /hpf Microbiology - Last 24 Hours (Table) 11/29/17 02:00 Blood Culture - Preliminary Blood No Growth after 24 hours 11/28/17 19:52 Blood Culture - Preliminary Blood No Growth after 24 hours 11/28/17 21:10 Urine Culture - Preliminary Urine,Catheterized Assessment and Plan Assessment: Impression: 1 malignant hyperthermia, induced by succinylcholine, associated with hypoxic respiratory failure requiring intubation overnight, patient was extubated on , and she tolerated the extubation well so far. 2 acute ureterolithiasis, status post right ureteroscopy, lithotripsy, stone basketing, right ureteral stent insertion, postoperative day #2 3 suspect acute urinary tract infection, culture is pending, patient is presently on ceftriaxone. 4 acute pulmonary edema secondary to severe LV dysfunction and cardiomyopathy, patient responded well to diuretics, and her chest x-ray cleared well. Patient is being followed by cardiology, reviewed and discussed the echocardiogram with the appliance worker, and she is going to be seen by them for follow-up on her cardiomyopathy and LV dysfunction. She did have elevated troponin on admission. But she had a relatively normal EKG. Recommendation: Continue supportive care measures, patient was extubated yesterday uneventfully, she will remain in the ICU today, continue antibiotics, continue diuretics as needed, placed on Restoril for insomnia and could not sleep last night. Discussed her condition with her and her mother at bedside. We'll continue to follow Time with Patient: Less than 30
--- NOTE | 2017-11-30 11:46 | P.PN ---
Subjective Progress Note Date: 11/30/17 This is a 47-year-old female who had surgery for renal calculi and subsequently developed a problem with hyperthermia and also respiratory difficulties requiring intubation. Patient had abnormal liver enzymes and mild troponin elevation. Echo Cardigan showed findings of cardiomyopathy. Patient is extubated now. She is feeling much better. Doesn't seem to be in acute distress. Chest x-ray showed improvement. Her kidney functions are normal. Electrolytes are normal. We'll continue current medical therapy along with beta blockers, MAXIMUS inhibitor and diuretics. Patient is still having intermittent fever. Objective - Vital Signs Vital signs: Vital Signs Temp 100.2 F H 11/30/17 11:00 Pulse 81 11/30/17 11:00 Resp 17 11/30/17 11:00 BP 104/74 11/30/17 11:00 Pulse Ox 98 11/30/17 11:00 Intake & Output 11/29/17 11/30/17 11/30/17 18:59 06:59 18:59 Intake Total 2948.484 7133 330 Output Total 1955 670 600 Balance -638.394 471 -270 Weight 62.9 kg Intake: IV 1250 1141 330 0.9 @10 185 130 105 Dantrolene 240 Lactated Ringers 1,000 ml 825 975 225 @ 75 mls/hr IV .[id number] LUDIN Rx#:[id number] pressure bag 36 Intake, IV Titration 66.606 Amount Propofol 1,000 mg In 66.606 Empty Bag 1 bag @ Titrate IV .Q0M LUDIN Rx#: [id number] Output: Urine 1955 670 600 Other: Voiding Method Indwelling Catheter Indwelling Catheter Indwelling Catheter # Bowel Movements 1 3 ABP, PAP, CO, CI - Last Documented Arterial Blood Pressure 112/70 - Exam GENERAL EXAM: Patient is alert and oriented and doesn't appear to be in any acute distress HEENT: Normocephalic. Normal reaction of pupils, equal size, normal range of extraocular motion. NECK: No masses, no nuchal rigidity. CHEST: No chest wall deformity. LUNGS: Equal air entry with no crackles or wheeze. HEART: S1 and S2 normal with no audible mumurs or gallops. Regular rhythm, femorals equal on both sides.. ABDOMEN: No hepatosplenomegaly, normal bowel sounds, no guarding or rigidity. SKIN: No rashes CENTRAL NERVOUS SYSTEM: No focal deficits. EXTREMITIES: No cyanosis, clubbing or edema. - Labs CBC & Chem 7: 11/30/17 04:30 11/30/17 10:10 Labs: Abnormal Lab Results - Last 24 Hours (Table) 11/29/17 11/29/17 11/29/17 Range/Units 12:42 14:29 14:29 WBC (3.8-10.6) k/uL RBC (3.80-5.40) m/uL Hgb (11.4-16.0) gm/dL Hct (34.0-46.0) % Neutrophils # (1.3-7.7) k/uL ABG pH 7.50 H (7.35-7.45) ABG pCO2 31 L (35-45) mmHg ABG pO2 161 H (83-108) mmHg ABG Total CO2 25 H (19-24) mmol/L ABG O2 Saturation 99.7 H (94-97) % Glucose 103 H (74-99) mg/dL Phosphorus 4.6 H (2.5-4.5) mg/dL GGT 144 H (12-43) U/L AST 42 H (14-36) U/L ALT 63 H (9-52) U/L Alkaline Phosphatase 185 H (38-126) U/L Creatine Kinase (30-135) U/L CK-MB (CK-2) (0.0-2.4) ng/mL Troponin I 0.712 H* (0.000-0.034) ng/mL Total Protein 5.7 L (6.3-8.2) g/dL Albumin 3.0 L (3.5-5.0) g/dL Amylase <30 L (30-110) U/L Lipase 20 L (23-300) U/L Urine Appearance (Clear) Urine Protein (Negative) Urine Blood (Negative) Ur Leukocyte Esterase (Negative) Urine RBC (0-5) /hpf Urine WBC (0-5) /hpf Urine WBC Clumps (None) /hpf Urine Bacteria (None) /hpf 11/29/17 11/29/17 11/29/17 Range/Units 14:29 14:29 21:00 WBC 15.0 H (3.8-10.6) k/uL RBC 3.53 L (3.80-5.40) m/uL Hgb 11.1 L (11.4-16.0) gm/dL Hct 33.4 L (34.0-46.0) % Neutrophils # (1.3-7.7) k/uL ABG pH (7.35-7.45) ABG pCO2 (35-45) mmHg ABG pO2 (83-108) mmHg ABG Total CO2 (19-24) mmol/L ABG O2 Saturation (94-97) % Glucose 107 H (74-99) mg/dL Phosphorus (2.5-4.5) mg/dL GGT 135 H (12-43) U/L AST 37 H (14-36) U/L ALT 58 H (9-52) U/L Alkaline Phosphatase 171 H (38-126) U/L Creatine Kinase 212 H 196 H (30-135) U/L CK-MB (CK-2) (0.0-2.4) ng/mL Troponin I (0.000-0.034) ng/mL Total Protein 5.5 L (6.3-8.2) g/dL Albumin 2.9 L (3.5-5.0) g/dL Amylase <30 L (30-110) U/L Lipase (23-300) U/L Urine Appearance (Clear) Urine Protein (Negative) Urine Blood (Negative) Ur Leukocyte Esterase (Negative) Urine RBC (0-5) /hpf Urine WBC (0-5) /hpf Urine WBC Clumps (None) /hpf Urine Bacteria (None) /hpf 11/29/17 11/29/17 11/30/17 Range/Units 21:00 21:00 04:30 WBC 14.6 H (3.8-10.6) k/uL RBC 3.49 L (3.80-5.40) m/uL Hgb 11.0 L (11.4-16.0) gm/dL Hct 33.2 L (34.0-46.0) % Neutrophils # (1.3-7.7) k/uL ABG pH (7.35-7.45) ABG pCO2 (35-45) mmHg ABG pO2 (83-108) mmHg ABG Total CO2 (19-24) mmol/L ABG O2 Saturation (94-97) % Glucose 122 H (74-99) mg/dL Phosphorus (2.5-4.5) mg/dL GGT (12-43) U/L AST (14-36) U/L ALT (9-52) U/L Alkaline Phosphatase 167 H (38-126) U/L Creatine Kinase (30-135) U/L CK-MB (CK-2) 2.8 H (0.0-2.4) ng/mL Troponin I 0.507 H* (0.000-0.034) ng/mL Total Protein 5.5 L (6.3-8.2) g/dL Albumin 2.9 L (3.5-5.0) g/dL Amylase (30-110) U/L Lipase (23-300) U/L Urine Appearance (Clear) Urine Protein (Negative) Urine Blood (Negative) Ur Leukocyte Esterase (Negative) Urine RBC (0-5) /hpf Urine WBC (0-5) /hpf Urine WBC Clumps (None) /hpf Urine Bacteria (None) /hpf 11/30/17 11/30/17 Range/Units 04:30 08:55 WBC 12.3 H (3.8-10.6) k/uL RBC 3.42 L (3.80-5.40) m/uL Hgb 10.6 L (11.4-16.0) gm/dL Hct 33.3 L (34.0-46.0) % Neutrophils # 9.6 H (1.3-7.7) k/uL ABG pH (7.35-7.45) ABG pCO2 (35-45) mmHg ABG pO2 (83-108) mmHg ABG Total CO2 (19-24) mmol/L ABG O2 Saturation (94-97) % Glucose (74-99) mg/dL Phosphorus (2.5-4.5) mg/dL GGT (12-43) U/L AST (14-36) U/L ALT (9-52) U/L Alkaline Phosphatase (38-126) U/L Creatine Kinase (30-135) U/L CK-MB (CK-2) (0.0-2.4) ng/mL Troponin I (0.000-0.034) ng/mL Total Protein (6.3-8.2) g/dL Albumin (3.5-5.0) g/dL Amylase (30-110) U/L Lipase (23-300) U/L Urine Appearance Turbid H (Clear) Urine Protein 1+ H (Negative) Urine Blood Large H (Negative) Ur Leukocyte Esterase Large H (Negative) Urine RBC 131 H (0-5) /hpf Urine WBC >182 H (0-5) /hpf Urine WBC Clumps Many H (None) /hpf Urine Bacteria Occasional H (None) /hpf Microbiology - Last 24 Hours (Table) 11/29/17 02:00 Blood Culture - Preliminary Blood No Growth after 24 hours 11/28/17 19:52 Blood Culture - Preliminary Blood No Growth after 24 hours 11/28/17 21:10 Urine Culture - Preliminary Urine,Catheterized Assessment and Plan (1) Cardiomyopathy Current Visit: Yes Status: Acute Code(s): I42.9 - CARDIOMYOPATHY, UNSPECIFIED SNOMED Code(s): 60062714 (2) Hydronephrosis due to obstruction of ureter Current Visit: No Status: Acute Code(s): N13.2 - HYDRONEPHROSIS WITH RENAL AND URETERAL CALCULOUS OBSTRUCTION SNOMED Code(s): 636391557 (3) Troponin level elevated Current Visit: Yes Status: Acute Code(s): R74.8 - ABNORMAL LEVELS OF OTHER SERUM ENZYMES SNOMED Code(s): 963072033 Plan: I'll add small dose of Coreg and lisinopril. Continue with small dose of diuretics. However chest x-ray shows free of any CHF at this time.
[2017-11-30] MEDS: CARVEDILOL 1.563 MG TAB PO SCH ×2 (12:19→17:09)
[2017-11-30] MEDS ORDERED: ACETAMINOPHEN TAB 500 MG TAB PO PRN (13:09)
[2017-11-30] MEDS: TEMAZEPAM 15 MG CAP PO SCH (22:32)
[2017-12-01 05:11] LABS: ALT 36 U/L (9-52); AST 17 U/L (14-36); Albumin 2.6 g/dL (3.5-5.0); Alkaline Phosphatase 130 U/L (38-126); Anion Gap 5 mmol/L; Blood Urea Nitrogen 10 mg/dL (7-17); Calcium 8.4 mg/dL (8.4-10.2); Carbon Dioxide 26 mmol/L (22-30); Chloride 108 mmol/L (98-107); Glucose 101 mg/dL (74-99); Sodium 139 mmol/L (137-145); Total Bilirubin 0.4 mg/dL (0.2-1.3); Total Protein 5.2 g/dL (6.3-8.2)
[2017-12-01 06:25] LABS: Basophils % (A) 1 %; Eosinophils # (A) 0.1 k/uL (0-0.7); Eosinophils % (A) 1 %; HCT 31.4 % (34.0-46.0); HGB 9.9 gm/dL (11.4-16.0); Lymphocytes # (A) 2.4 k/uL (1.0-4.8); Lymphocytes % (A) 30 %; MCH 31.3 pg (25.0-35.0); MCHC 31.6 g/dL (31.0-37.0); MCV 98.9 fL (80.0-100.0); Mean Platelet Volume 8.9; Monocytes # (A) 0.6 k/uL (0-1.0); Monocytes % (A) 7 %; Neutrophils # (A) 4.5 k/uL (1.3-7.7); Neutrophils % (A) 58 %; Platelet Count 156 k/uL (150-450); RBC 3.18 m/uL (3.80-5.40); RDW 13.4 % (11.5-15.5); WBC 7.8 k/uL (3.8-10.6)
--- NOTE | 2017-12-01 06:41 | XR ---
EXAMINATION TYPE: XR chest 1V DATE OF EXAM: 12/01/2017 HISTORY: sob. REFERENCE: Previous study dated 11/30/2017. FINDINGS: A right internal jugular catheter remains in place, unchanged in appearance. The heart is not enlarged. The lungs are clear. There is a small left effusion. IMPRESSION: CONTINUING SMALL LEFT-SIDED EFFUSION.
[2017-12-01] MEDS: LACTATED RINGERS 1,000 ML IV SCH (09:04)
[2017-12-01] MEDS: CARVEDILOL 1.563 MG TAB PO SCH ×2 (09:05→18:07)
--- NOTE | 2017-12-01 09:11 | P.PN ---
Progress Note - Text Progress Note Date: 12/01/17 The patient is afebrile and has been so since early yesterday morning. She is hemodynamically stable and has no shortness of breath. She denies any abdominal pain and her urine is clear. BUN/creatinine are 10/0.54. White blood count is 7800 and has improved. My standpoint the patient's Quiros catheter could be removed. She will hopefully be transferred to a regular floor today. She will be discharged once she is cleared by Dr. Rader.
[2017-12-01] MEDS: HEPARIN SODIUM,PORCINE 5,000 UNIT/ML 1 ML VIAL SQ SCH ×3 (09:40→23:47)
[2017-12-01] MEDS: FAMOTIDINE 20 MG/2 ML VIAL IV SCH ×2 (09:41→20:42)
--- NOTE | 2017-12-01 11:01 | P.PN ---
Subjective Progress Note Date: 12/01/17 This is a 47-year-old female who had surgery for renal calculi and subsequently developed a problem with hyperthermia and also respiratory difficulties requiring intubation. Patient had abnormal liver enzymes and mild troponin elevation. Echo Cardigan showed findings of cardiomyopathy. Patient is extubated now. She is feeling much better. Doesn't seem to be in acute distress. Chest x-ray showed improvement. Her kidney functions are normal. Electrolytes are normal. We'll continue current medical therapy along with beta blockers, MAXIMUS inhibitor and diuretics. Patient is still having intermittent fever. This patient is looking much better. She is sitting up in the chair. Denies any chest pain or shortness of breath. Does not have any significant rise in temperature. No arrhythmias are detected. Patient could be transferred to telemetry unit. We'll repeat echocardiogram tomorrow. Objective - Vital Signs Vital signs: Vital Signs Temp 99.1 F 12/01/17 00:00 Pulse 99 12/01/17 07:00 Resp 29 H 12/01/17 07:00 BP 112/77 12/01/17 07:00 Pulse Ox 95 12/01/17 07:00 Intake & Output 11/30/17 12/01/17 12/01/17 18:59 06:59 18:59 Intake Total 1060 935 255 Output Total 1235 530 410 Balance -175 405 -155 Weight 59.5 kg Intake: IV 1060 935 255 0.9 @10 185 110 30 Lactated Ringers 1,000 ml 825 825 225 @ 75 mls/hr IV .[id number] LUDIN Rx#:[id number] cefTRIAXone 1,000 mg In 50 Sodium Chloride 0.9% 50 ml @ 100 mls/hr IVPB Q24HR LUDIN Rx#:[id number] Output: Urine 1235 530 410 Other: Voiding Method Indwelling Catheter Indwelling Catheter # Bowel Movements 3 ABP, PAP, CO, CI - Last Documented Arterial Blood Pressure 112/70 - Exam GENERAL EXAM: Patient is alert and oriented and doesn't appear to be in any acute distress HEENT: Normocephalic. Normal reaction of pupils, equal size, normal range of extraocular motion. NECK: No masses, no nuchal rigidity. CHEST: No chest wall deformity. LUNGS: Equal air entry with no crackles or wheeze. HEART: S1 and S2 normal with no audible mumurs or gallops. Regular rhythm, femorals equal on both sides.. ABDOMEN: No hepatosplenomegaly, normal bowel sounds, no guarding or rigidity. SKIN: No rashes CENTRAL NERVOUS SYSTEM: No focal deficits. EXTREMITIES: No cyanosis, clubbing or edema. - Labs CBC & Chem 7: 12/01/17 04:15 12/01/17 04:15 Labs: Abnormal Lab Results - Last 24 Hours (Table) 12/01/17 12/01/17 Range/Units 04:15 04:15 RBC 3.18 L (3.80-5.40) m/uL Hgb 9.9 L (11.4-16.0) gm/dL Hct 31.4 L (34.0-46.0) % Chloride 108 H (98-107) mmol/L Glucose 101 H (74-99) mg/dL Alkaline Phosphatase 130 H (38-126) U/L Total Protein 5.2 L (6.3-8.2) g/dL Albumin 2.6 L (3.5-5.0) g/dL Microbiology - Last 24 Hours (Table) 11/28/17 21:10 Urine Culture - Final Urine,Catheterized 11/29/17 02:00 Blood Culture - Preliminary Blood No Growth after 48 hours 11/29/17 21:00 Blood Culture - Preliminary Blood No Growth after 24 hours 11/28/17 19:52 Blood Culture - Preliminary Blood No Growth after 48 hours 11/29/17 14:29 Blood Culture - Preliminary Blood No Growth after 24 hours 11/29/17 09:51 Blood Culture - Preliminary Blood No Growth after 24 hours Assessment and Plan (1) Cardiomyopathy Current Visit: Yes Status: Acute Code(s): I42.9 - CARDIOMYOPATHY, UNSPECIFIED SNOMED Code(s): 32716127 (2) Hydronephrosis due to obstruction of ureter Current Visit: No Status: Acute Code(s): N13.2 - HYDRONEPHROSIS WITH RENAL AND URETERAL CALCULOUS OBSTRUCTION SNOMED Code(s): 579307876 (3) Troponin level elevated Current Visit: Yes Status: Acute Code(s): R74.8 - ABNORMAL LEVELS OF OTHER SERUM ENZYMES SNOMED Code(s): 083867433 Plan: I'll add small dose of Coreg and lisinopril. Continue with small dose of diuretics. However chest x-ray shows free of any CHF at this time. Patient is looking much better. Tolerating both Coreg and lisinopril. Patient will be counseled telemetry unit. Will increase the dose as tolerated. Echocardiogram in the morning.
--- NOTE | 2017-12-01 13:01 | P.PN ---
Subjective Progress Note Date: 12/01/17 Principal diagnosis: Postoperative malignant hyperthermia, hypoxic respiratory failure requiring intubation and mechanical ventilation. This is a 47-year-old female, no previous significant medical history except for rectal prolapse, and kidney stone. Patient had no previous history of urinary tract infections, on the evening of 11/24/2017, patient developed a sudden episode of right flank pain radiating down to the right lower quadrant. Seen at [facility] initially and a CT of the abdomen and pelvis showed markedly high to ureter nephrosis, and thinning of the right renal parenchyma. Transferred to [facility], seen by Dr. Iglesias and she was initially offered ureteral stent or nephrostomy tube, patient declined, and ramus were made for her to undergo this elective removal of the calculus. However on 11/28/2017, patient presented with intractable symptoms of pain. She was also complaining of nausea and vomiting. Hence the patient underwent late afternoon yesterday cystoscopy, right ureteroscopy and stone basketing, right ureteral stent insertion. This was done under general anesthesia. And the patient received succinylcholine prior to intubation. Her surgery was relatively uneventful, however when the patient was sent to the recovery room, were and she was noted to develop tachycardia, hyper therapy with a temp of 103 , hypertension, and muscle rigidity. She was seen by the anesthesiologist Dr. 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 Patient was given dantrolene, ice packs were placed, cooling blanket was placed , and her ABG was noted to be poor, hence the patient was reintubated, transferred to the ICU, kept on that malignant hyperthermia protocol, and I was consulted to see the patient. She is presently on mechanical ventilation, tidal volume of 400 assist control rate of 10, FiO2 of 45%, and PEEP of 5. ABG this morning showed a pO2 of 208 pCO2 of 33 pH of 7.49. All labs were reviewed , she was noted to have slightly elevated liver enzymes, troponin was also elevated, EKG is unremarkable, CPK was 245, initiated a cardiology consultation. Initial chest x-ray after intubation showed evidence of pulmonary alveolar edema, follow-up chest x-ray this morning shows significant improvement, and that was truly reflected on her arterial blood gases today compared to the ABG yesterday. Patient did receive Lasix overnight. Echocardiogram is pending, patient remains at this point on the dantrolene protocol for malignant hyperthermia. She is not tachycardic anymore. Her temp is significantly improved, she is hemodynamically stable at this point, remains on propofol which I plan to discontinue and probably consider weaning trial on this patient. Patient was reevaluated today on 11/30/2017, she was extubated yesterday, and she tolerated the extubation relatively well. Presently on 3 L nasal cannula, her chest x-ray has completely cleared with diuresis, her echocardiogram was reviewed and clearly shows severe LV dysfunction. Patient spiked fever again last night, she is still on cooling blankets, and received Tylenol last night. Today she is afebrile, she is feeling much better, asymptomatic, no cough no wheezing no shortness of breath no chest pain no nausea no vomiting or abdominal pain. CBC was noted to be relatively normal. Basic metabolic profile is normal. Renal profile is normal. Her urinalysis is showing some pyuria and hematuria, remains on Rocephin, culture on the urine is pending. Reevaluated today on 12/01/2017, patient is doing quite well, she is on 2 L nasal cannula, hemodynamically stable, no further episodes of fever, her urine culture is negative, remains on Rocephin, patient is doing great considering how ill she was just 2 days ago.chest x-ray is relatively unremarkable CBC is relatively normal hemoglobin is 9.9.basic metabolic profile is normal. Hence I plan to move the patient out of the ICU recommended removal of her central line , peripheral IV access, transferred to a monitor bed on selective, may even in the future require repeat echocardiogram and possibly further cardiac workup if the echocardiogram remains abnormal and showing LV dysfunction. Discussed this issue with the hand etcher on the case. Objective - Vital Signs Vital signs: Vital Signs Temp 99.1 F 12/01/17 08:00 Pulse 94 12/01/17 12:00 Resp 12 12/01/17 12:00 BP 112/84 12/01/17 12:00 Pulse Ox 97 12/01/17 12:00 Intake & Output 11/30/17 12/01/17 12/01/17 18:59 06:59 18:59 Intake Total 1060 935 365 Output Total 1235 530 411 Balance -175 405 -46 Weight 59.5 kg Intake: IV 1060 935 365 0.9 @10 185 110 40 Lactated Ringers 1,000 ml 825 825 225 @ 75 mls/hr IV .[id number] [facility] Rx#:[id number] cefTRIAXone 1,000 mg In 50 100 Sodium Chloride 0.9% 50 ml @ 100 mls/hr IVPB Q24HR [facility] Rx#:[id number] Output: Urine 1235 530 410 Stool 1 Other: Voiding Method Indwelling Catheter Indwelling Catheter Indwelling Catheter # Voids 1 # Bowel Movements 3 1 ABP, PAP, CO, CI - Last Documented Arterial Blood Pressure 112/70 - Exam Physical Exam: 47-year-old female in no form of distress. Asymptomatic. HEENT:[Neck is supple.] [No neck masses.] [No thyromegaly.] [No JVD.]. Right IJ central line is noted which will be discontinued today. Chest: [symmetrical expansion.Clear throughout, no crackles, no rhonchi, no wheezes.] Cardiac Exam: [Normal S1 and S2, no S3 gallop, no murmur.] Abdomen: [Soft, nontender, no megaly, no rebound, no guarding, normal bowel sounds.] Extremities: [relatively unremarkable.] Neurological Exam: [No focal neurologic deficit.]alert oriented 3. Lymphatics: No lymphadenopathy. Psychiatric: Normal mood, affect and mental status examination. - Labs CBC & Chem 7: 12/01/17 04:15 12/01/17 04:15 Labs: Abnormal Lab Results - Last 24 Hours (Table) 12/01/17 12/01/17 Range/Units 04:15 04:15 RBC 3.18 L (3.80-5.40) m/uL Hgb 9.9 L (11.4-16.0) gm/dL Hct 31.4 L (34.0-46.0) % Chloride 108 H (98-107) mmol/L Glucose 101 H (74-99) mg/dL Alkaline Phosphatase 130 H (38-126) U/L Total Protein 5.2 L (6.3-8.2) g/dL Albumin 2.6 L (3.5-5.0) g/dL Microbiology - Last 24 Hours (Table) 11/29/17 09:51 Blood Culture - Preliminary Blood No Growth after 48 hours 11/28/17 21:10 Urine Culture - Final Urine,Catheterized 11/29/17 02:00 Blood Culture - Preliminary Blood No Growth after 48 hours 11/29/17 21:00 Blood Culture - Preliminary Blood No Growth after 24 hours 11/28/17 19:52 Blood Culture - Preliminary Blood No Growth after 48 hours 11/29/17 14:29 Blood Culture - Preliminary Blood No Growth after 24 hours Assessment and Plan Assessment: Impression: 1 malignant hyperthermia, 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 2 acute ureterolithiasis, status post right ureteroscopy, lithotripsy, stone basketing, right ureteral stent insertion, postoperative day #3 3 suspect acute urinary tract infection, culture is negative, but we'll continue ceftriaxone for now and likely discontinue in the morning. 4 acute pulmonary edema secondary to severe LV dysfunction and cardiomyopathy, will likely need further workup by cardiology. Recommendation: Discussed the patient's condition with a urologist , and with the hand etcher, we all agreed to transfer the patient out of the ICU, Will discontinue Quiros catheter, discontinue central line, continue cardiac meds as ordered, may repeat echocardiogram on Saturday, consider discharge planning in the next 24-48 hours but will eventually require cardiac evaluation. Patient was made aware about the seriousness of malignant hyperthermia, and should notify her medical staff in the future if any surgery is to be considered. Family members should also be aware of this. Time with Patient: Less than 30
[2017-12-01] MEDS: TEMAZEPAM 15 MG CAP PO SCH (23:47)
[2017-12-02 04:02] VITALS: RESP 18
[2017-12-02] MEDS: CARVEDILOL 1.563 MG TAB PO SCH (05:57)
[2017-12-02] MEDS: LACTATED RINGERS 1,000 ML IV SCH (05:58)
[2017-12-02 06:03] LABS: Basophils % (A) 1 %; Eosinophils # (A) 0.2 k/uL (0-0.7); Eosinophils % (A) 2 %; HGB 10.3 gm/dL (11.4-16.0); Lymphocytes # (A) 2.3 k/uL (1.0-4.8); Lymphocytes % (A) 32 %; MCH 30.8 pg (25.0-35.0); MCHC 32.3 g/dL (31.0-37.0); MCV 95.5 fL (80.0-100.0); Mean Platelet Volume 7.9; Monocytes # (A) 0.5 k/uL (0-1.0); Monocytes % (A) 6 %; Neutrophils # (A) 4.1 k/uL (1.3-7.7); Neutrophils % (A) 55 %; Platelet Count 255 k/uL (150-450); RBC 3.35 m/uL (3.80-5.40); RDW 13.1 % (11.5-15.5); WBC 7.3 k/uL (3.8-10.6)
[2017-12-02 06:13] LABS: AST 36 U/L (14-36); Albumin 2.8 g/dL (3.5-5.0); Alkaline Phosphatase 128 U/L (38-126); Anion Gap 9 mmol/L; Blood Urea Nitrogen 11 mg/dL (7-17); Calcium 8.6 mg/dL (8.4-10.2); Carbon Dioxide 24 mmol/L (22-30); Chloride 110 mmol/L (98-107); Glucose 105 mg/dL (74-99); Potassium 3.9 mmol/L (3.5-5.1); Sodium 143 mmol/L (137-145); Total Bilirubin 0.4 mg/dL (0.2-1.3); Total Protein 5.7 g/dL (6.3-8.2)
[2017-12-02 06:15] LABS: ALT 42 U/L (9-52)
[2017-12-02] MEDS: HEPARIN SODIUM,PORCINE 5,000 UNIT/ML 1 ML VIAL SQ SCH (09:19)
[2017-12-02] MEDS: FAMOTIDINE 20 MG/2 ML VIAL IV SCH (09:19)
--- NOTE | 2017-12-02 10:03 | ECHOF ---
Referral Reason:Chest pain and cardiomyopathy MEASUREMENTS -------- HEIGHT: 165.1 cm WEIGHT: 59.4 kg BP: 120/78 IVSd: 0.8 cm (0.6 - 1.1) LVIDd: 4.2 cm (3.9 - 5.3) LVPWd: 0.9 cm (0.6 - 1.1) IVSs: 1.0 cm LVIDs: 3.7 cm LVPWs: 1.2 cm LAESV Index (A-L): 34.33 ml/m Ao Diam: 3.0 cm (2.0 - 3.7) AV Cusp: 2.1 cm (1.5 - 2.6) LA Diam: 2.8 cm (2.7 - 3.8) EPSS: 1.4 cm MV E Camron: 1.16 m/s MV DecT: 183 ms MV A Camron: 0.86 m/s MV E/A Ratio: 1.34 RAP: 10.00 mmHg RVSP: 38.89 mmHg MV EF SLOPE: 96.87 mm/s (70 - 150) MV EXCURSION: 2.07 cm (> 18.000) FINDINGS -------- Sinus rhythm. This was a technically good study. The left ventricular size is normal. Left ventricular wall thickness is normal. Overall left vent ricular systolic function is mild-moderately impaired with, an EF between 40 - 45 %. Basal lateral LV wall motion is hypokinetic. Basal inferior LV wall motion is hypokinetic. Mid inferior LV wa ll motion is hypokinetic. The right ventricle is normal in size and function. LA is moderately dilated 34-39 ml/m2 The right atrium is normal in size. The aortic valve is trileaflet, and appears structurally normal. No aortic stenosis or regurgitation. The mitral valve leaflets are mildly thickened. [id number] mitral regurgitation is present. Trace tricuspid regurgitation present. There is borderline pulmonary hypertension. The right vent ricular systolic pressure, as measured by Doppler, is 38.89mmHg. The pulmonic valve was not well visualized. The aortic root size is normal. The IVC is dilated with normal collapse. There is a small pericardial effusion is located near the right ventricle. CONCLUSIONS -------- 1. Sinus rhythm. 2. This was a technically good study. 3. The left ventricular size is normal. 4. Left ventricular wall thickness is normal. 5. Overall left ventricular systolic function is mild-moderately impaired with, an EF between 40 - 45 %. 6. Basal inferior LV wall motion is hypokinetic. 7. LA is moderately dilated 34-39 ml/m2 8. The aortic valve is trileaflet, and appears structurally normal. No aortic stenosis or regurgitati on. 9. The mitral valve leaflets are mildly thickened. 10. [id number] mitral regurgitation is present. 11. Trace tricuspid regurgitation present. 12. There is borderline pulmonary hypertension. 13. The right ventricular systolic pressure, as measured by Doppler, is 38.89mmHg. 14. The pulmonic valve was not well visualized. 15. The aortic root size is normal. 16. The IVC is dilated with normal collapse. 17. There is a small pericardial effusion is located near the right ventricle. GYM INSTRUCTOR: Tomás Maxwell RDCS
--- NOTE | 2017-12-02 13:50 | P.PN ---
Subjective Progress Note Date: 12/02/17 Principal diagnosis: Postoperative malignant hyperthermia, hypoxic respiratory failure requiring intubation and mechanical ventilation This is a 47-year-old female, no previous significant medical history except for rectal prolapse, and kidney stone. Patient had no previous history of urinary tract infections, on the evening of 11/24/2017, patient developed a sudden episode of right flank pain radiating down to the right lower quadrant. Seen at [facility] initially and a CT of the abdomen and pelvis showed markedly high to ureter nephrosis, and thinning of the right renal parenchyma. Transferred to [facility], seen by Dr. Iglesias and she was initially offered ureteral stent or nephrostomy tube, patient declined, and ramus were made for her to undergo this elective removal of the calculus. However on 11/28/2017, patient presented with intractable symptoms of pain. She was also complaining of nausea and vomiting. Hence the patient underwent late afternoon yesterday cystoscopy, right ureteroscopy and stone basketing, right ureteral stent insertion. This was done under general anesthesia. And the patient received succinylcholine prior to intubation. Her surgery was relatively uneventful, however when the patient was sent to the recovery room, were and she was noted to develop tachycardia, hyper therapy with a temp of 103 , hypertension, and muscle rigidity. She was seen by the anesthesiologist Dr. 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 Patient was given dantrolene, ice packs were placed, cooling blanket was placed , and her ABG was noted to be poor, hence the patient was reintubated, transferred to the ICU, kept on that malignant hyperthermia protocol, and I was consulted to see the patient. She is presently on mechanical ventilation, tidal volume of 400 assist control rate of 10, FiO2 of 45%, and PEEP of 5. ABG this morning showed a pO2 of 208 pCO2 of 33 pH of 7.49. All labs were reviewed , she was noted to have slightly elevated liver enzymes, troponin was also elevated, EKG is unremarkable, CPK was 245, initiated a cardiology consultation. Initial chest x-ray after intubation showed evidence of pulmonary alveolar edema, follow-up chest x-ray this morning shows significant improvement, and that was truly reflected on her arterial blood gases today compared to the ABG yesterday. Patient did receive Lasix overnight. Echocardiogram is pending, patient remains at this point on the dantrolene protocol for malignant hyperthermia. She is not tachycardic anymore. Her temp is significantly improved, she is hemodynamically stable at this point, remains on propofol which I plan to discontinue and probably consider weaning trial on this patient. Patient was reevaluated today on 11/30/2017, she was extubated yesterday, and she tolerated the extubation relatively well. Presently on 3 L nasal cannula, her chest x-ray has completely cleared with diuresis, her echocardiogram was reviewed and clearly shows severe LV dysfunction. Patient spiked fever again last night, she is still on cooling blankets, and received Tylenol last night. Today she is afebrile, she is feeling much better, asymptomatic, no cough no wheezing no shortness of breath no chest pain no nausea no vomiting or abdominal pain. CBC was noted to be relatively normal. Basic metabolic profile is normal. Renal profile is normal. Her urinalysis is showing some pyuria and hematuria, remains on Rocephin, culture on the urine is pending. Reevaluated today on 12/01/2017, patient is doing quite well, she is on 2 L nasal cannula, hemodynamically stable, no further episodes of fever, her urine culture is negative, remains on Rocephin, patient is doing great considering how ill she was just 2 days ago.chest x-ray is relatively unremarkable CBC is relatively normal hemoglobin is 9.9.basic metabolic profile is normal. Hence I plan to move the patient out of the ICU recommended removal of her central line , peripheral IV access, transferred to a monitor bed on selective, may even in the future require repeat echocardiogram and possibly further cardiac workup if the echocardiogram remains abnormal and showing LV dysfunction. Discussed this issue with the contact center consultant on the case. On 12/02/2017 patient seen again in follow-up. She is awake and alert, she is on room air, vital signs are stable, her pulse ox is 97%, lung sounds are clear , diminished at the bases. Denies any shortness of breath, yesterday chest x- ray showed small left-sided pleural effusion, days echocardiogram results showed EF between 40-45%, moderate to severe mitral regurg, trace tricuspid regurgitation and borderline pulmonary hypertension with right ventricular systolic pressure of 38 mmHg. Nuys chest pain, denies shortness of breath. Cultures are negative. No acute events overnight. Objective - Vital Signs Vital signs: Vital Signs Temp 98.1 F 12/02/17 08:00 Pulse 84 12/02/17 08:00 Resp 18 12/02/17 08:00 BP 124/75 12/02/17 08:00 Pulse Ox 97 12/02/17 08:00 Intake & Output 12/01/17 12/02/17 12/02/17 18:59 06:59 18:59 Intake Total 365 240 Output Total 412 100 1 Balance -47 -100 239 Weight 56.6 kg Intake: IV 365 0.9 @10 40 Lactated Ringers 1,000 ml 225 @ 75 mls/hr IV .[id number] [facility] Rx#:[id number] cefTRIAXone 1,000 mg In 100 Sodium Chloride 0.9% 50 ml @ 100 mls/hr IVPB Q24HR [facility] Rx#:[id number] Oral 240 Output: Urine 410 100 Stool 2 1 Other: Voiding Method Indwelling Catheter Toilet Toilet # Voids 1 1 # Bowel Movements 1 ABP, PAP, CO, CI - Last Documented Arterial Blood Pressure 112/70 - Exam Physical Exam: 47-year-old female in no form of distress. Asymptomatic. HEENT:[Neck is supple.] [No neck masses.] [No thyromegaly.] [No JVD.]. Right IJ central line is noted which will be discontinued today. Chest: [symmetrical expansion.Clear throughout, no crackles, no rhonchi, no wheezes.] Cardiac Exam: [Normal S1 and S2, no S3 gallop, no murmur.] Abdomen: [Soft, nontender, no megaly, no rebound, no guarding, normal bowel sounds.] Extremities: [relatively unremarkable.] Neurological Exam: [No focal neurologic deficit.]alert oriented 3. Lymphatics: No lymphadenopathy. Psychiatric: Normal mood, affect and mental status examination. - Labs CBC & Chem 7: 12/02/17 05:36 12/02/17 05:36 Labs: Abnormal Lab Results - Last 24 Hours (Table) 12/02/17 12/02/17 Range/Units 05:36 05:36 RBC 3.35 L (3.80-5.40) m/uL Hgb 10.3 L (11.4-16.0) gm/dL Hct 32.0 L (34.0-46.0) % Chloride 110 H (98-107) mmol/L Glucose 105 H (74-99) mg/dL Alkaline Phosphatase 128 H (38-126) U/L Total Protein 5.7 L (6.3-8.2) g/dL Albumin 2.8 L (3.5-5.0) g/dL Microbiology - Last 24 Hours (Table) 11/29/17 09:51 Blood Culture - Preliminary Blood No Growth after 72 hours 11/29/17 02:00 Blood Culture - Preliminary Blood No Growth after 72 hours 11/29/17 21:00 Blood Culture - Preliminary Blood No Growth after 48 hours 11/28/17 19:52 Blood Culture - Preliminary Blood No Growth after 72 hours 11/29/17 14:29 Blood Culture - Preliminary Blood No Growth after 48 hours Assessment and Plan Plan: 1 malignant hyperthermia, 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 2 acute ureterolithiasis, status post right ureteroscopy, lithotripsy, stone basketing, right ureteral stent insertion, postoperative day #3 3 suspect acute urinary tract infection, culture is negative, but we'll continue ceftriaxone for now and likely discontinue in the morning. 4 acute pulmonary edema secondary to severe LV dysfunction and cardiomyopathy, will likely need further workup by cardiology. Recommendation: Patient including doing very well, no specific complaints, no chest pain or shortness of breath. Repeat echocardiogram showed improvement of left ventricular systolic function, EF is 40-45%, from previous 30-35%. He has been afebrile, no leukocytosis, and we can discontinue Rocephin. From pulmonary perspective patient is stable, and can consider for discharge home today I performed a history & physical examination of the patient and discussed their management with my nurse practitioner, Luz Najera. I reviewed the nurse practitioner's note and agree with the documented findings and plan of care. Lung sounds are clear, diminished at the bases. The findings and the impression was discussed with the patient. I attest to the documentation by the nurse practitioner. Time with Patient: Less than 30
--- NOTE | 2017-12-02 15:19 | P.PN ---
Subjective Progress Note Date: 12/02/17 This is a 47-year-old female, no previous significant medical history except for rectal prolapse, and kidney stone. Patient had no previous history of urinary tract infections, on the evening of 11/24/2017, patient developed a sudden episode of right flank pain radiating down to the right lower quadrant. Seen at [facility] initially and a CT of the abdomen and pelvis showed markedly high to ureter nephrosis, and thinning of the right renal parenchyma. Transferred to [facility], seen by Dr. Iglesias and she was initially offered ureteral stent or nephrostomy tube, patient declined, and recommendations were made for her to undergo this elective removal of the calculus. However on 11/28/2017, patient presented with intractable symptoms of pain. She was also complaining of nausea and vomiting. Hence the patient underwent cystoscopy, right ureteroscopy and stone basketing, right ureteral stent insertion. This was done under general anesthesia. And the patient received succinylcholine prior to intubation. Her surgery was relatively uneventful, however when the patient was sent to the recovery room, she was noted to develop tachycardia, hyperthermia with a temp of 103, hypertension, and muscle rigidity. She was seen by the anesthesiologist Dr. 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 Patient was given dantrolene, ice packs were placed, cooling blanket was placed, and her ABG was noted to be poor, hence the patient was reintubated, transferred to the ICU, kept on that malignant hyperthermia protocol, patient had mild troponin elevation and abnormal liver enzymes, echocardiogram with Doppler study was performed which revealed an ejection fraction of 30-35%. Patient did have a repeat echocardiogram with Doppler study performed which revealed mild improvement in LV function, 40-45% with mild inferior basal hypokinesia. ' s troponin abnormality likely secondary to hypoxia and hypothermia, not suggestive of type I myocardial infarction. For this we will continue maximum medical therapy. As an outpatient an echo and stress test will be performed. Follow-up appointment with Dr. VC Perez in the office in one week. Objective - Vital Signs Vital signs: Vital Signs Temp 98.1 F 12/02/17 08:00 Pulse 84 12/02/17 08:00 Resp 18 12/02/17 08:00 BP 124/75 12/02/17 08:00 Pulse Ox 97 12/02/17 08:00 Intake & Output 12/01/17 12/02/17 12/02/17 18:59 06:59 18:59 Intake Total 365 240 Output Total 412 100 1 Balance -47 -100 239 Weight 56.6 kg Intake: IV 365 0.9 @10 40 Lactated Ringers 1,000 ml 225 @ 75 mls/hr IV .[id number] LUDIN Rx#:[id number] cefTRIAXone 1,000 mg In 100 Sodium Chloride 0.9% 50 ml @ 100 mls/hr IVPB Q24HR LUDIN Rx#:[id number] Oral 240 Output: Urine 410 100 Stool 2 1 Other: Voiding Method Indwelling Catheter Toilet Toilet # Voids 1 1 # Bowel Movements 1 ABP, PAP, CO, CI - Last Documented Arterial Blood Pressure 112/70 - Exam Physical Exam: Revealed a 47-year-old female in no distress. On mechanical ventilation. Head: Atraumatic, normocephalic, endotracheal tube and orogastric tube are intact. HEENT:[Neck is supple.] [No neck masses.] [No thyromegaly.] [No JVD.] PERRLA, EOMI, no neck masses, no JVD, moist mucous membranes Chest: [Minimal fine crackles at the left base, right side is relatively clear, no rhonchi, no wheezes. Cardiac Exam: [Normal S1 and S2, no S3 gallop, no murmur.] Abdomen: [Soft, nontender, no megaly, no rebound, no guarding, normal bowel sounds.] Extremities: [No clubbing, no edema, no cyanosis.] Neurological Exam: [Arousable, opens eyes, follows very simple instructions, no gross focal deficit, however the patient is on a lower dose of propofol at this point. Lymphatics: No lymphadenopathy. - Labs CBC & Chem 7: 12/02/17 05:36 12/02/17 05:36 Labs: Abnormal Lab Results - Last 24 Hours (Table) 12/02/17 12/02/17 Range/Units 05:36 05:36 RBC 3.35 L (3.80-5.40) m/uL Hgb 10.3 L (11.4-16.0) gm/dL Hct 32.0 L (34.0-46.0) % Chloride 110 H (98-107) mmol/L Glucose 105 H (74-99) mg/dL Alkaline Phosphatase 128 H (38-126) U/L Total Protein 5.7 L (6.3-8.2) g/dL Albumin 2.8 L (3.5-5.0) g/dL Microbiology - Last 24 Hours (Table) 11/29/17 09:51 Blood Culture - Preliminary Blood No Growth after 72 hours 11/29/17 02:00 Blood Culture - Preliminary Blood No Growth after 72 hours 11/29/17 21:00 Blood Culture - Preliminary Blood No Growth after 48 hours 11/28/17 19:52 Blood Culture - Preliminary Blood No Growth after 72 hours 11/29/17 14:29 Blood Culture - Preliminary Blood No Growth after 48 hours Assessment and Plan Plan: Assessment and plan Impression: 1: Postoperative hypoxic respiratory failure, secondary to malignant hyperthermia, 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 2: Malignant hyperthermia, according to the mother no family history of malignant hyperthermia, patient herself never had any surgery in the past. 3 acute ureterolithiasis and status post right ureteroscopy, lithotripsy, stone basketing, right ureteral stent insertion. 4 elevated troponin, , likely secondary to hypoxia and hyperthermia, not suggestive of a type I myocardial infarction. Echocardiogram with Doppler study repeated today showed an ejection fraction of 40-45% with inferior basal hypokinesia noted. Plan From cardiology's perspective, patient may be able to be discharged home today, we will continue Coreg, increasing the dose to 3.125 mg twice a day, add a small dose of MAXIMUS inhibitor to her medication regime, add a statin to her medication regime. Follow-up appointment in the office with Dr. VC Perez, stress test and echo as an outpatient will be performed. DNP note has been reviewed, I agree with a documented findings and plan of care. Patient was seen and examined.
[2017-12-02 16:38] VITALS: BP 111/71; PULSE 98; TEMP 98.6
[2017-12-02] MEDS ORDERED: CARVEDILOL 3.125 MG TAB PO SCH (17:30)
[2017-12-03] MEDS ORDERED: ATORVASTATIN 40 MG TAB PO SCH (09:00)
[2017-12-03] MEDS ORDERED: LISINOPRIL 2.5 MG TAB PO SCH (09:00)
== END 2017-12-02 16:48 | disposition home or self-care (01) | DRG 668 ==
LOC: OR 16:48 → 3SUR 18:54 → 6ICU 18:54 → OR 20:38 → 6SEL 12-01 13:38
PROVIDERS: ADMIT Urology; ATTEND Urology
PROC: 5A1945Z Respiratory Ventilation, 24-96 Consecutive Hours (ICD-10-PCS; 2017-11-28)
PROC: 02HV33Z Insertion of Infusion Device into Superior Vena Cava, Percutaneous Approach (ICD-10-PCS; 2017-11-28)
PROC: 03HY32Z Insertion of Monitoring Device into Upper Artery, Percutaneous Approach (ICD-10-PCS; 2017-11-28)
PROC: 4A133B1 Monitoring of Arterial Pressure, Peripheral, Percutaneous Approach (ICD-10-PCS; 2017-11-28)
PROC: 4A133J1 Monitoring of Arterial Pulse, Peripheral, Percutaneous Approach (ICD-10-PCS; 2017-11-28)
PROC: 0TC68ZZ Extirpation of Matter from Right Ureter, Via Natural or Artificial Opening Endoscopic (ICD-10-PCS; principal; 2017-11-28 18:10)
PROC: 0T768DZ Dilation of Right Ureter with Intraluminal Device, Via Natural or Artificial Opening Endoscopic (ICD-10-PCS; 2017-11-28 18:10)
PROC: 0BH17EZ Insertion of Endotracheal Airway into Trachea, Via Natural or Artificial Opening (ICD-10-PCS; 2017-11-28 18:10)
DX: N13.2 Hydronephrosis with renal and ureteral calculous obstruction (principal); J81.0 Acute pulmonary edema; J95.821 Acute postprocedural respiratory failure; T88.3XXA Malignant hyperthermia due to anesthesia, initial encounter; I42.9 Cardiomyopathy, unspecified; T48.1X5A Adverse effect of skeletal muscle relaxants [neuromuscular blocking agents], initial encounter; K62.3 Rectal prolapse; R77.9 Abnormality of plasma protein, unspecified; Z87.442 Personal history of urinary calculi; Z87.891 Personal history of nicotine dependence; Z82.5 Family history of asthma and other chronic lower respiratory diseases; Z84.1 Family history of disorders of kidney and ureter
CPT/HCPCS: 36600; 71045; 80048; 80053; 81001; 82150; 82550; 82553; 82805; 82977; 83690; 83735; 83880; 84100; 84132; 84439; 84443; 84484; 85025; 85027; 85610; 85730; 87040; 87086; 87324; 93306; 94002; 94003

== ENCOUNTER → 2017-11-28 | Outpatient (CLI) | payer SELFPAY ==
[~2017-11-28] MED LIST: FAMOTIDINE 20 MG/2 ML VIAL ONE
--- NOTE | 2017-11-29 07:09 | FL ---
EXAMINATION TYPE: FL urography retrograde DATE OF EXAM: 11/28/2017 COMPARISON: NONE HISTORY: Right ureteral stone RT ureteral stone. 29 secs FL. 3 images saved.
--- NOTE | 2017-11-29 12:31 | CONS ---
CONSULTATION Mrs. Young is a 47-year-old female who is seen for cardiac evaluation. The patient's medical records reviewed. The patient is currently intubated. History was obtained from the chart as well as the patient's mother. This patient who has been otherwise healthy recently was found to have a large ureteral stone and hydronephrosis. Patient underwent surgery. In the recovery, patient was noticed to be hyperthermic, in some respiratory distress. The patient was intubated and has been treated for malignant hyperthermia. We were requested to see the patient because of the abnormal troponin. The patient had not complained of any chest pain. There is no prior cardiac history of any coronary artery disease, diabetes or hypertension. The patient currently remains intubated. Patient's highest temperature was 103. Patient's temperature now is 100.2. Blood pressure is 143/91 mmHg. Head/ENT examination is negative. Neck is supple. There is no increase in jugular venous pressure. Both the carotid pulses are felt. There is no bruit. Chest is symmetrical. HEART: The PMI is not felt. First and second heart sounds are heard. Lungs reveal few scattered wheezes. Abdomen is negative. EXTREMITIES: Peripheral pulsations are 2+. EKG shows normal sinus rhythm without any acute ischemic changes. Initial blood gases done yesterday showed pH of 7.41, pO2 was 96, and oxygen saturation was 98%. This patient's troponin level was 0.492 and 0.578. The patient also has elevated liver enzymes. FINAL IMPRESSION: 1. This patient is status post surgery for ureteral stone. Patient developed malignant hyperthermia and respiratory distress. She is currently hemodynamically stable. 2. Patient has a mild elevation in the troponin which could be secondary to malignant hyperthermia and hypoxia. There are no EKG changes suggestive of ischemia. Echo and Doppler study will be done. We will continue the current supportive treatment. MMODL / IJN: [id number] /
== END | disposition home or self-care (01) ==
LOC: LABPAT 10:25
PROVIDERS: ATTEND Urology
DX: Z01.818 Encounter for other preprocedural examination (principal); Z01.812 Encounter for preprocedural laboratory examination; N20.1 Calculus of ureter; R31.29 Other microscopic hematuria; R53.83 Other fatigue
CPT/HCPCS: 36415; 74420; 87086; 93005

== ENCOUNTER → 2018-04-22 | Outpatient (CLI) | payer BC ==
--- NOTE | 2018-04-22 10:08 | MM ---
Reason for exam: screening (asymptomatic). Baseline mammogram. History: Patient is nulliparous. Took hormonal contraceptives for 11 years. Physical Findings: Nurse did not find any significant physical abnormalities on exam. MG 3D Screening Mammo W/Cad Bilateral CC and MLO view(s) were taken. The breast tissue is heterogeneously dense. This may lower the sensitivity of mammography. Central focal asymmetry right breast partially disperses on 3D. These results were verbally communicated with the patient and result sheet given to the patient on 04/22/18. ASSESSMENT: Incomplete: need additional imaging evaluation, BI-RAD 0 RECOMMENDATION: Special view mammogram of the right breast. If lesion persists on supplemental views, image directed ultrasound is recommended. [facility] will attempt to contact patient to return for supplemental views and ultrasound if indicated.
--- NOTE | 2018-04-25 09:35 | MM ---
Reason for exam: additional evaluation requested from abnormal screening. History: Patient is nulliparous. Took hormonal contraceptives for 11 years. Physical Findings: Breast exam preformed at baseline screening. MG 3D Work Up W/Cad RT Spot compression CC, spot compression MLO, and LM view(s) were taken of the right breast. The breast tissue is heterogeneously dense. This may lower the sensitivity of mammography. The central focal asymmetry disperses on spot 3D. Patient can return to annual screening. These results were verbally communicated with the patient and result sheet given to the patient on 04/22/18. ASSESSMENT: Negative, BI-RAD 1 RECOMMENDATION: Return to routine screening mammogram schedule for both breasts.
== END | disposition home or self-care (01) ==
LOC: RADMAMWWP 08:25
PROVIDERS: ATTEND Family Medicine
DX: Z12.31 Encounter for screening mammogram for malignant neoplasm of breast (principal); R92.8 Other abnormal and inconclusive findings on diagnostic imaging of breast
CPT/HCPCS: 77061; 77063; 77065; 77067

== ENCOUNTER → 2018-10-28 | Day surgery (SDC) | payer BC ==
[2018-10-27 09:52] VITALS: BMI 19.0
[~2018-10-28] MED LIST changes: -DANTROLENE 20 MG VIAL IV ONE; -DEXAMETHASONE SOD PHOS (MDV) 100 MG/10 ML VIAL IVP ONE; -FAMOTIDINE 20 MG/2 ML VIAL IVP ONE; -HYDROmorphone (PF) 1 MG/ML ONE; -LACTATED RINGERS 1,000 ML IV ONE; +LACTATED RINGERS 1,000 ML IV SCH; -LIDOCAINE 1% 20 ML VIAL (10MG/ML) FOR IV START INTRADERMA ONE; +LIDOCAINE 1% 20 ML VIAL (10MG/ML) FOR IV START INTRADERMA PRN; -ONDANSETRON 4 MG/2 ML VIAL IVP ONE; -PHENYLEPHRINE-0.9% NACL SYG 1 MG/10 ML SYRINGE ONE; -SUCCINYLCHOLINE CHLORIDE 100 MG/5 ML SYR IV ONE; -ceFAZolin 1,000 MG in DEXTROSE/WATER 1 50ML.BAG IVPB SCH; -fentaNYL (PF) 50 MCG/ML 2 ML AMP ONE
[2018-10-28 07:14] VITALS: TEMP 98.1
[2018-10-28 08:21] VITALS: RESP 16
--- NOTE | 2018-10-28 08:23 | P.PCN ---
Date of Procedure: 10/28/18 Description of Procedure: BRIEF HISTORY: Patient is a 48-year-old pleasant female scheduled for an elective colonoscopy as a part of evaluation after episode of rectal prolapse and for symptoms of intermittent bright red blood per rectum. He reports having an episode of rectal prolapse for which she was seen in the ER approximately 6 months ago. The patient was to follow up with colonoscopy but is failed to do so due to an illness earlier in the year. She also reports intermittent episodes of bright red blood per rectum. No abdominal pain or change in bowel habits reported. She does not believe there is any history of colon cancer in her immediate family. PROCEDURE PERFORMED: Colonoscopy with biopsy. PREOPERATIVE DIAGNOSIS: Bright red blood per rectum, history of rectal prolapse. ESTIMATED BLOOD LOSS: Minimal. IV sedation per Anesthesia. PROCEDURE: After informed consent was obtained, the patient, was brought into the endoscopy unit. IV sedation was administered by Anesthesia under continuous monitoring. Digital rectal examination was normal. Initially the Olympus CF-190 flexible video colonoscope was then inserted in the rectum, gradually advanced into the cecum without any difficulty. Careful examination was performed as the scope was gradually being withdrawn. Ileocecal valve and the appendiceal orifice were visualized and appeared normal. Prep was excellent. Mucosa of the cecum, ascending colon, transverse colon, descending colon, sigmoid colon, and rectum appeared normal. A 4 cm mass in the distal rectum approximately 10 cm from the anal verge was seen. The mass appeared to be partially pedunculated with some abnormal tissue adjacent tissue. The mass was nonobstructing and biopsies were taken. Retroflexion was performed in the rectum and no lesions were seen, mild internal hemorrhoids were noted . The patient tolerated the procedure well. IMPRESSION: 4 cm rectal mass, biopsied. mild internal hemorrhoids. RECOMMENDATIONS: Findings of this examination were discussed with the patient and her mother. Await pathology from biopsies. Extensive discussion about a possible etiologies of the mass, and patient will likely need follow-up for either surgical intervention or endoscopic resection pending pathology.
[2018-10-28 08:34] VITALS: BP 113/70; PULSE 61
== END | disposition home or self-care (01) ==
LOC: ORWHC2ENDO 06:54
PROVIDERS: ATTEND Internal Medicine
DX: K64.8 Other hemorrhoids (principal); D12.8 Benign neoplasm of rectum; Z87.891 Personal history of nicotine dependence; Z87.442 Personal history of urinary calculi
CPT/HCPCS: 81025; 88305; 45380; J2250; J2001; J2704

== ENCOUNTER → 2020-12-12 | Outpatient (CLI) | payer BC ==
--- NOTE | 2020-12-12 13:51 | MM ---
Reason for exam: screening (asymptomatic). Last mammogram was performed 2 years and 8 months ago. History: Patient is postmenopausal and is nulliparous. Took hormonal contraceptives for 11 years. Physical Findings: A clinical breast exam by your physician is recommended on an annual basis and results should be correlated with mammographic findings. MG 3D Screening Mammo W/Cad Bilateral CC and MLO view(s) were taken. Prior study comparison: April 22, 2018, right breast MG 3d work up w/cad RT. April 22, 2018, bilateral MG 3d screening mammo w/cad. The breast tissue is heterogeneously dense. This may lower the sensitivity of mammography. There is no discrete abnormality. ASSESSMENT: Negative, BI-RAD 1 RECOMMENDATION: Routine screening mammogram of both breasts in 1 year.
== END | disposition home or self-care (01) ==
LOC: RADMAMWWP 08:06
PROVIDERS: ATTEND Family Medicine
DX: Z12.31 Encounter for screening mammogram for malignant neoplasm of breast (principal); Z78.0 Asymptomatic menopausal state
CPT/HCPCS: 77063; 77067

== ENCOUNTER → 2021-02-08 | Outpatient (CLI) | payer BC ==
--- NOTE | 2021-02-08 11:58 | CT ---
EXAMINATION TYPE: CT abdomen pelvis wo con DATE OF EXAM: 02/08/2021 COMPARISON: 11/25/17 HISTORY: Blood in urine CT DLP: 538 mGycm Examination of the solid and hollow viscera is limited given the lack of contrast. FINDINGS: LUNG BASES: No evidence for nodule. No evidence for infiltrate. LIVER/GB: The gallbladder is unremarkable. No space-occupying hepatic lesion. PANCREAS: No pancreatic mass identified. No inflammatory process seen. SPLEEN: No evidence for splenomegaly. No intrasplenic lesions seen. Splenic granulomas noted. ADRENALS: No adrenal nodules identified. No evidence for thickening. KIDNEYS: Atrophic change of the right kidney with compensatory hypertrophy left kidney. Fullness of t he left renal collecting system however I do not see evidence for an obstructing calculus at this ayla e. Nonobstructing calculus mid pole right kidney measuring 3 mm. BOWEL: Appendix has a normal appearance. No evidence of bowel obstruction. No inflammatory process. Lymph nodes: No evidence for adenopathy greater than 1 cm. Abdominal aorta: Atheromatous changes seen. No evidence for aneurysm. Genital organs: No significant abnormality. Other: No significant abnormality. IMPRESSION: Atrophic change of the right kidney with compensatory hypertrophy left kidney. Fullness of the left r enal collecting system however I do not see evidence for an obstructing calculus at this time.
== END | disposition home or self-care (01) ==
LOC: RADCTMAIN 10:06
PROVIDERS: ATTEND Family Medicine
DX: N26.1 Atrophy of kidney (terminal) (principal); N28.81 Hypertrophy of kidney
CPT/HCPCS: 74176

== ENCOUNTER → 2021-12-25 | Outpatient (CLI) | payer BC ==
--- NOTE | 2021-12-26 19:02 | MM ---
Reason for Exam: Screening (asymptomatic). Last screening mammogram was performed 12 month(s) ago. Patient History: Menarche at age 17. Patient has no children. Postmenopausal. Patient used Hormonal Contraceptives for 11 years. Risk Values: Linda 5 year model risk: 0.9%. NCI Lifetime model risk: 9.2%. Prior Study Comparison: 04/22/2018 Bilateral Screening Mammogram, [facility]. 04/22/2018 Right Diagnostic Mammogram, [facility]. 12/12/2020 Bilateral Screening Mammogram, [facility]. Tissue Density: The breast tissue is heterogeneously dense. This may lower the sensitivity of mammography. Findings: Analyzed By CAD. There is no suspicious group of microcalcifications or new suspicious mass in either breast. Overall Assessment: Negative, BI-RAD 1 Management: Screening Mammogram of both breasts in 1 year. 1. Patient should continue monthly self breast exams. 2. A clinical breast exam by your physician is recommended on an annual basis. 3. This exam should not preclude additional follow-up of suspicious palpable abnormalities. Electronically signed and approved by: Annika Granados M.D. Radiologist
== END ==
LOC: RADMAMWWP 16:50
PROVIDERS: ATTEND Family Medicine
DX: Z12.31 Encounter for screening mammogram for malignant neoplasm of breast (principal)
CPT/HCPCS: 77063; 77067

== ENCOUNTER → 2023-04-03 | Outpatient (CLI) | payer BC ==
--- NOTE | 2023-04-04 08:47 | MM ---
Reason for Exam: Screening (asymptomatic). Last mammogram was performed 1 year(s) and 3 month(s) ago. Patient History: Menarche at age 17. Patient has no children. Postmenopausal. Patient used Hormonal Contraceptives for 11 years. Risk Values: Linda 5 year model risk: 1.0%. NCI Lifetime model risk: 8.9%. Prior Study Comparison: 04/22/2018 Right Diagnostic Mammogram, [facility]. 12/12/2020 Bilateral Screening Mammogram, [facility]. 12/25/2021 Bilateral MG 3D screening mammo w/cad, [facility]. Tissue Density: The breast tissue is heterogeneously dense. This may lower the sensitivity of mammography. Findings: Analyzed By CAD. There is no suspicious group of microcalcifications or new suspicious mass. Overall Assessment: Negative, BI-RAD 1 Management: Screening Mammogram of both breasts in [address] [facility] will attempt to contact patient to return for supplemental views and ultrasound if indicated. Patient should continue monthly self-breast exams. A clinical breast exam by your physician is recommended on an annual basis. This exam should not preclude additional follow-up of suspicious palpable abnormalities. Note on Linda scores and lifetime risk: 1. A Linda score greater than 3% is considered moderate risk. If this is the case, consider specialist referral to assess eligibility for a risk reducing agent. 2. If overall lifetime risk for the development of breast cancer is 20% or higher, the patient may qualify for future screening with alternating mammogram and breast MRI. Electronically signed and approved by: Minor Goznalez DO
== END | disposition home or self-care (01) ==
LOC: RADMAMWWP 16:23
PROVIDERS: ATTEND Family Medicine
DX: Z12.31 Encounter for screening mammogram for malignant neoplasm of breast (principal); Z78.0 Asymptomatic menopausal state
CPT/HCPCS: 77063; 77067